=== PATIENT | female | born 1945 | race Caucasian/White ===

== ENCOUNTER 2022-12-24 17:05 | Inpatient (IN) ==
--- NOTE | 2022-12-24 17:19 | Emergency Department Note ---
Impression & Plan Fall, Dementia, Contusion of face ED Provider Note Provider: Zuhair Torres MD DATE OF SERVICE: 12/24/2022 CHIEF COMPLAINT: Fall HISTORY OF PRESENT ILLNESS: Patient is a 77-year-old female with unfortunate advanced dementia presenting here today after a fall. Resides at [facility]. Unfortunately had several falls recently and fell last night seen here in the emergency department. Patient unfortunately with severe dementia unable to provide me significant history. EMS reports that the patient at [facility] was found and had a fall onto the posterior head with a bump there. Fortunately no other significant injuries. Patient denies other pain but again is not a good historian. Records indicate she is not on significant anticoagulants. PAST MEDICAL HISTORY: As noted above MEDICATIONS: Reviewed home medication SOCIAL HISTORY: Resides at [facility] memory care unit PHYSICAL EXAM: GENERAL: alert in no acute distress but not oriented to recent events or where she is at the time. Head: Significant contusions of the face with a large forehead hematoma present without active bleeding. Some slight swelling of the posterior head but not significant tender . No bleeding noted EYES: No injection, discharge or icterus. PERRL, EOMI. NECK: Trachea midline. Supple without significant tenderness ENT: Mucous membranes pink and moist. No epistaxis noted at this time. LUNGS: Airway patent. No retractions. Breath sounds clear HEART: Regular rate and rhythm. No chest wall tenderness ABDOMEN: Soft and non-tender, without guarding or rebound. EXTREMITIES: No significant swelling of the lower extremities. Some contusions prickly to left forearm but on both upper extremities. Soft compartments in all 4 extremities. No significant bony tenderness. NEUROLOGICAL: No focal deficits moving all extremities. No slurred speech. Confabulating speech reportedly baseline with her dementia. PDMP was checked without noted issue. GCS 14. Baseline confusion. Patient's imaging reviewed. Differential includes Fracture, dislocation, contusion, intra-abdominal, p neumothorax, intrathoracic, intracranial, neurologic, compartment syndrome, rhabdomyolysis, as well as other pathologies. IMPRESSION/MEDICAL DECISION MAKING: Patient had blood work completed yesterday in addition to imaging. New fall now and will complete a CT head, cervical spine, and x-rays of the chest and pelvis. No significant pain on exam elsewise the forehead which has some swelling and tenderness and healing contusion. Appears this was present last night. CT imaging of the head and cervical spine per radiology without significant skull fracture, pneumocephalus, or intracranial bleed noted. Not on high risk blood thinners. No significant tenderness in the extremities with some healing contusions on the forearm in particular noted. Patient's son later bedside. Discussion with case management. Son has concerns given that she has had 3 falls in 3 days and they do not seem to be able to give her the appropriate level of care according to him at the facility. He has reac hed out to [facility] as well as hospice to discuss additional support options. He does not feel comfortable with her returning. Basic blood work obtained although blood work was obtained last night. Son wished to have her stay for other placement. Case management aware. Discussed with the hospitalist. DIAGNOSIS: Fall, facial contusion, dementia DISPOSITION: Hospitalist will evaluate Past Med/Surg History Medical History Dementia No pertinent family history Surgical History No pertinent past surgical history Social History Smoking Status: Never smoker Feels Safe at Home: Yes Allergies Allergies Allergy/AdvReac Type Severity Reaction Status Date / Time No Known Allergies Allergy Verified 12/24/22 18:52 Home Meds Home Medications Medication Instructions Recorded Confirmed acetaminophen 325 mg tablet 650 mg PO Q6H PRN PAIN/FEVER >101 12/24/22 12/24/22 (Tylenol) cholecalciferol (vitamin D3) 50 50 mcg PO QAM 12/24/22 12/24/22 mcg (2,000 unit) capsule (Vitamin D3) loperamide 2 mg capsule 4 mg PO DAILY PRN Loose Stool 12/24/22 12/24/22 melatonin 5 mg tablet 5 mg PO HS 12/24/22 12/24/22 ondansetron HCl 4 mg tablet 4 mg PO Q8H PRN NAUSE/VOMITING 12/24/22 12/24/22 paroxetine HCl 10 mg tablet 10 mg PO QAM 12/24/22 12/24/22 valproic acid 250 mg capsule See Rx Instructions .Route .COMPLEX 12/24/22 12/24/22 Results & Data (ED) Vital Signs Vital Signs - 24 hr 12/24/22 17:32 Temperature 36.9 C Temperature Source Oral Pulse Rate 76 Respiratory Rate 14 Blood Pressure 91/50 L Blood Pressure Mean 63 Pulse Oximetry 94 Sepsis Recent Fever Within 48 Hours No Sepsis New/Unexplained Change in Mental Status No Sepsis Action Taken by Nursing No Action Required Imaging Data Radiologist's Impression: Cervical Spine CT 12/24/22 17:11 CT SCAN OF THE CERVICAL SPINE CLINICAL HISTORY: Fall. COMPARISON STUDY: CT of the cervical spine dated 12/23/2022. TECHNIQUE: CT scan of the cervical spine is performed from the skull base to the upper thoracic spine. Images are reviewed in the axial, sagittal, and coronal planes. IV contrast was not administered for this examination. A dose lowering technique was utilized adhering to the principles of ALARA. CT DOSE: 816.47 mGy.cm FINDINGS: Skeletal structures: The skeletal structures are osteopenic. There is no evidence of fracture or subluxation involving the cervical spine. Vertebral body height is maintained. There is minimal anterolisthesis at C4-C5. Alignment is otherwise preserved. There is straightening of the cervical lordosis with reversal centered at C4-C5. Large anterior osteophytes are seen throughout. The odontoid process and lateral masses are intact. The atlantoaxial articulation is preserved noting productive degenerative change. The spinous processes appear intact. There is moderate to advanced multilevel cervical spondylosis. Uncovertebral and facet arthropathy contribute to neural foraminal narrowing at most levels. Intervertebral discs: There is marked severe disc space narrowing at C5-C6 and C6-C7. Mild to moderate narrowing is seen at the remaining cervical levels. Central canal: Posterior disc osteophyte complexes are seen at all cervical levels between C3-C4 and C7-T1. This likely contributes to multilevel acquired compromise of the central canal. Soft tissues: The prevertebral and paraspinous soft tissues are within normal limits. There is atherosclerotic calcification of the carotid bulbs. Calvarium: The visualized calvarium at the skull base appears intact. Brain parenchyma: Partially visualized brain parenchyma at the skull base is within normal limits. Sinuses and mastoids: The visualized paranasal sinuses are clear. The mastoid air cells are well pneumatized. Lung apices: Clear as visualized. IMPRESSION: 1. There is no evidence of fracture or subluxation involving the cervical spine. 2. Osteopenia and spondylotic change as above. ACT 112: Negative or not required by law. Electronically signed by: Aly Queen M.D. 12/24/2022 5:54 PM Chest X-Ray 12/24/22 17:11 SINGLE VIEW CHEST CLINICAL HISTORY: Fall. FINDINGS: An AP, portable, upright chest radiograph is compared to study dated 12/23/2022. The cardiomediastinal silhouette is unremarkable. Nonspecific interstitial thickening is likely chronic. Subpleural reticulation is seen throughout both lungs. There is mild elevation of the right hemidiaphragm with bibasilar scarring/atelectasis. Foci of parenchymal scarring are seen throughout both lungs. No airspace consolidation or large pleural effusion is identified. No pneumothorax is seen. The skeletal structures are osteopenic. There are chronic/healed right-sided rib fractures. IMPRESSION: No acute cardiopulmonary abnormality. No significant change from yesterday. ACT 112: Negative or not required by law. Electronically signed by: Aly Queen M.D. 12/24/2022 6:[address] 12/24/22 17:11 CT SCAN OF THE BRAIN WITHOUT IV CONTRAST CLINICAL HISTORY: Fall. COMPARISON STUDY: CT of the brain dated 12/23/2022. TECHNIQUE: Unenhanced axial CT scan of the brain is performed from the vertex to the skull base. A dose lowering technique was utilized adhering to the principles of ALARA. FINDINGS: Brain parenchyma: There is age-related involutional change noting moderate subcortical and periventricular microangiopathic disease. There is no hemorrhage, mass effect, or evidence of acute territorial ischemia by CT criteria. Bartlett-white matter differentiation is preserved. No extra-axial fluid collection is seen. Ventricles, sulci, cisterns: Prominent secondary to involutional change. Intracranial vasculature: There is atherosclerotic calcification of the cavernous carotid and vertebral arteries appear. Calvarium: The skeletal structures are osteopenic. No depressed calvarial fracture is identified. Sinuses and mastoids: The visualized paranasal sinuses are clear. The mastoid air cells are well pneumatized. Orbits: The bony orbits are grossly intact. Soft tissues: A frontal scalp hematoma is similar to yesterday. There is also right premalar soft tissue contusion. IMPRESSION: There is no hemorrhage, mass effect, or evidence of acute territorial ischemia by CT criteria. ACT 112: Negative or not required by law. Electronically signed by: Aly Queen M.D. 12/24/2022 5:49 PM Pelvis X-Ray 12/24/22 17:11 SINGLE VIEW PELVIS CLINICAL HISTORY: Fall. FINDINGS: 2 AP, portable, supine views of the pelvis are compared to pelvic radiograph and CT dated 12/23/2022. The skeletal structures are osteopenic. There is no radiographic evidence of acute fracture involving the hips or bony pelvis. Mild to moderate arthritic change and joint space narrowing is seen in the hips. Degenerative sclerosis is noted in the sacroiliac joints. Lumbosacral spondylosis is partially visualized. The overlying soft tissues are within normal limits. Fecal retention is noted in the rectosigmoid. IMPRESSION: No acute bony abnormality is identified. Electronically signed by: Aly Queen M.D. 12/24/2022 6:10 PM Discharge Plan Visit Data Chief Complaint: Fall Stated Complaint: FALL, CONTUSION TO BACK OF HEAD ED Provider: Zuhair Torres Discharge Problem: Fall, Dementia, Contusion of face Patient Disposition: Being Evaluated by Hospitalist Forms Stand Alone Forms: [facility] Prescriptions Prescriptions: No Action acetaminophen [Tylenol] 325 mg Tablet 650 mg PO Q6H PRN (Reason: PAIN/FEVER >101) paroxetine HCl 10 mg tablet 10 mg PO QAM loperamide 2 mg Capsule 4 mg PO DAILY PRN (Reason: Loose Stool) ondansetron HCl [Zofran] 4 mg Tablet 4 mg PO Q8H PRN (Reason: NAUSE/VOMITING) valproic acid 250 mg capsule See Rx Instructions .ROUTE .COMPLEX Rx Instructions: TAKES 500 MG QAM, THE 750 MG DAILY @ 1600 melatonin 5 mg Tablet 5 mg PO HS cholecalciferol (vitamin D3) [Vitamin D3] 50 mcg (2,000 unit) Capsule 50 mcg PO QAM Referrals Referrals: [facility] [Primary Care Provider] - Fall Qualifiers: Encounter type: initial encounter Qualified Code(s): W19.XXXA - Unspecified fall, initial encounter Dementia Qualifiers: Dementia type: unspecified type Contusion of face Qualifiers: Encounter type: initial encounter Qualified Code(s): S00.83XA - Contusion of other part of head, initial encounter
--- NOTE | 2022-12-24 17:51 | CT Scan Report ---
CT SCAN OF THE BRAIN WITHOUT IV CONTRAST CLINICAL HISTORY: Fall. COMPARISON STUDY: CT of the brain dated 12/23/2022. TECHNIQUE: Unenhanced axial CT scan of the brain is performed from the vertex to the skull base. A do se lowering technique was utilized adhering to the principles of ALARA. FINDINGS: Brain parenchyma: There is age-related involutional change noting moderate subcortical and periventri cular microangiopathic disease. There is no hemorrhage, mass effect, or evidence of acute territorial ischemia by CT criteria. Bartlett-white matter differentiation is preserved. No extra-axial fluid collec tion is seen. Ventricles, sulci, cisterns: Prominent secondary to involutional change. Intracranial vasculature: There is atherosclerotic calcification of the cavernous carotid and vertebr al arteries appear. Calvarium: The skeletal structures are osteopenic. No depressed calvarial fracture is identified. Sinuses and mastoids: The visualized paranasal sinuses are clear. The mastoid air cells are well pneu matized. Orbits: The bony orbits are grossly intact. Soft tissues: A frontal scalp hematoma is similar to yesterday. There is also right premalar soft tis amy contusion. IMPRESSION: There is no hemorrhage, mass effect, or evidence of acute territorial ischemia by CT odalis isidro. ACT 112: Negative or not required by law. Electronically signed by: Aly Queen M.D. 12/24/2022 5:49 PM
--- NOTE | 2022-12-24 17:57 | CT Scan Report ---
CT SCAN OF THE CERVICAL SPINE CLINICAL HISTORY: Fall. COMPARISON STUDY: CT of the cervical spine dated 12/23/2022. TECHNIQUE: CT scan of the cervical spine is performed from the skull base to the upper thoracic spine . Images are reviewed in the axial, sagittal, and coronal planes. IV contrast was not administered fo r this examination. A dose lowering technique was utilized adhering to the principles of ALARA. CT DOSE: 816.47 mGy.cm FINDINGS: Skeletal structures: The skeletal structures are osteopenic. There is no evidence of fracture or subl uxation involving the cervical spine. Vertebral body height is maintained. There is minimal anterolis thesis at C4-C5. Alignment is otherwise preserved. There is straightening of the cervical lordosis wi th reversal centered at C4-C5. Large anterior osteophytes are seen throughout. The odontoid process a nd lateral masses are intact. The atlantoaxial articulation is preserved noting productive degenerati ve change. The spinous processes appear intact. There is moderate to advanced multilevel cervical spo ndylosis. Uncovertebral and facet arthropathy contribute to neural foraminal narrowing at most levels . Intervertebral discs: There is marked severe disc space narrowing at C5-C6 and C6-C7. Mild to moderat e narrowing is seen at the remaining cervical levels. Central canal: Posterior disc osteophyte complexes are seen at all cervical levels between C3-C4 and C7-T1. This likely contributes to multilevel acquired compromise of the central canal. Soft tissues: The prevertebral and paraspinous soft tissues are within normal limits. There is athero sclerotic calcification of the carotid bulbs. Calvarium: The visualized calvarium at the skull base appears intact. Brain parenchyma: Partially visualized brain parenchyma at the skull base is within normal limits. Sinuses and mastoids: The visualized paranasal sinuses are clear. The mastoid air cells are well pneu matized. Lung apices: Clear as visualized. IMPRESSION: 1. There is no evidence of fracture or subluxation involving the cervical spine. 2. Osteopenia and spondylotic change as above. ACT 112: Negative or not required by law. Electronically signed by: Aly Queen M.D. 12/24/2022 5:54 PM
--- NOTE | 2022-12-24 18:13 | XRay Report ---
SINGLE VIEW PELVIS CLINICAL HISTORY: Fall. FINDINGS: 2 AP, portable, supine views of the pelvis are compared to pelvic radiograph and CT dated . The skeletal structures are osteopenic. There is no radiographic evidence of acute fracture involving the hips or bony pelvis. Mild to moderate arthritic change and joint space narrowing is se en in the hips. Degenerative sclerosis is noted in the sacroiliac joints. Lumbosacral spondylosis is partially visualized. The overlying soft tissues are within normal limits. Fecal retention is noted i n the rectosigmoid. IMPRESSION: No acute bony abnormality is identified. Electronically signed by: Aly Queen M.D. 12/24/2022 6:10 PM
--- NOTE | 2022-12-24 18:13 | XRay Report ---
SINGLE VIEW CHEST CLINICAL HISTORY: Fall. FINDINGS: An AP, portable, upright chest radiograph is compared to study dated 12/23/2022. The cardiom ediastinal silhouette is unremarkable. Nonspecific interstitial thickening is likely chronic. Subpleu ral reticulation is seen throughout both lungs. There is mild elevation of the right hemidiaphragm wi th bibasilar scarring/atelectasis. Foci of parenchymal scarring are seen throughout both lungs. No ai rspace consolidation or large pleural effusion is identified. No pneumothorax is seen. The skeletal s tructures are osteopenic. There are chronic/healed right-sided rib fractures. IMPRESSION: No acute cardiopulmonary abnormality. No significant change from yesterday. ACT 112: Negative or not required by law. Electronically signed by: Aly Queen M.D. 12/24/2022 6:12 PM
[2022-12-24 19:42] LABS: Basophils # (auto) 0.02 K/uL (0-0.2); Basophils % (auto) 0.3 %; Eosinophils # (auto) 0.02 K/uL (0-0.50); Eosinophils % (auto) 0.3 %; Hematocrit (blood only) 37.9 % (37.0-47.0); Hemoglobin 12.5 g/dl (12.0-16.0); Immature Granulocytes # (auto) 0.02 K/uL (0.01-0.20); Immature Granulocytes % (auto) 0.3 %; Lymphocytes # (auto) 1.08 K/uL (1.2-3.4); Lymphocytes % (auto) 15.5 %; Mean Corpuscular Hemoglobin 30.2 pg (25.0-34.0); Mean Corpuscular Volume 91.5 fL (80.0-100.0); Mean Platelet Volume 9.3 fL (9.4-12.4); Monocytes # (auto) 0.95 K/uL (0.11-0.59); Monocytes % (auto) 13.6 %; Neutrophils # (auto) 4.89 K/uL (1.40-6.50); Platelet Count 161 K/uL (130-400); RDW Coefficient of Variation 15.3 % (11.5-14.5); RDW Standard Deviation 51.1 fL (36.4-46.3); Red Blood Count 4.14 M/uL (4.20-5.40); White Blood Count 6.98 K/ul (4.8-10.8)
[2022-12-24 20:00] LABS: Alanine Aminotransferase 23 U/L (7-52); Albumin Globulin Ratio 1.1 (0.9-2); Albumin Level 3.4 gm/dl (3.4-5.0); Alkaline Phosphatase 68 U/L (34-104); Anion Gap 3 (3-11); BUN Creatinine Ratio 29.5 (10-20); Bilirubin,Total 0.4 mg/dl (0.2-1.0); Blood Urea Nitrogen 13 mg/dl (6-23); Carbon Dioxide 30 mmol/L (21-32); Chloride 111 mmol/L (98-107); Creatine Kinase 144 U/L (26-192); Creatinine Clr Calc Pharmacy 60.2 ml/min; Est GFR (African American) 112.1 ml/min; Est GFR (Non-African American) 96.7 ml/min; Glucose 91 mg/dl (70-99(Fasting)); Sodium 144 mmol/L (136-145); Total Protein 6.4 gm/dl (6.0-8.3)
[2022-12-24] MEDS ORDERED: POLYETHYLENE (MIRALAX) 17 GM PACK PO PRN (21:28)
[2022-12-24] MEDS ORDERED: ACETAMINOPHEN 325 MG TAB PO PRN (21:28)
[2022-12-24] MEDS: MELATONIN 3 MG TAB PO SCH (23:01)
[2022-12-25] MEDS: VALPROIC ACID SOLN 500 MG/10 ML UDC PO SCH ×2 (06:19→18:29)
[2022-12-25 06:56] LABS: Appearance Urine Cloudy (Clear); Bacteria Urine Automated 4+ (Negative); Bilirubin Urine Negative (Negative); Blood Urine Negative (Negative); Cast Urine Automated 0 /lpf (0-5); Color Urine Yellow; Epithelial Cell Urine Auto 0-5 /lpf (0-5); Glucose Urine UA Negative (Negative); Ketones Urine Trace (Negative); Leukocyte Esterase Urine 1+ (Negative); Nitrite Urine Positive (Negative); Protein Urine Negative (Negative); RBC Urine Automated 0-4 /hpf (0-4); Specific Gravity Urine 1.022 (1.000-1.030); Urobilinogen Urine Negative (Negative); pH Urine 6.5 (4.5-7.5)
--- NOTE | 2022-12-25 07:30 | History and Physical Report ---
DATE OF ADMISSION: 12/24/2022. CHIEF COMPLAINT: Frequent falls. HISTORY OF PRESENT ILLNESS: This is a 77-year-old female with past medical history significant for advanced dementia, hyperlipidemia, history of trigeminal neuralgia, history of tobacco use, who is currently living at [facility], presents with falls. She fell 3 times in last 3 days. She was in the ER last night and she was discharged back. Son is in the room. As per son, patient was nauseous today morning and had only broth in the afternoon, but she fell again and she likes higher level of care because she is falling frequently and working on to get in her to [facility] and doesn't want to take her back to [facility].She has a bump on her forehead, which was from yesterday's fall per son and she has black and blue bruises around the eyes. The patient is alert and awake, oriented to name. Son says she can recognize him. She is talking tangentially, obeys some of the commands, but not all of them.Patient denies any pain, but she is poor historian. As per the son, he does not know whether she has nausea or vomiting or diarrhea or constipation, but there was no fever or cough. Imaging studies, there are no acute findings. As per son, she was on donepezil before, but for some reason stopped recently and she was first placed on Paxil from last 1 month and then she stopped taking them couple of days ago, as she ran out of pills . Son just refilled the prescription, but not keen to give it as one of the side effect is dizziness and possibly causing her falls. The patient is hemodynamically stable. ALLERGIES: No known drug allergies. PAST MEDICAL HISTORY: As mentioned above. PAST SURGICAL HISTORY: No surgical history on file. MEDICATIONS: The patient is on Tylenol 650 mg p.o. every 6 hours p.r.n., vitamin D 50 mcg p.o. daily, loperamide 4 mg p.o. daily p.r.n., melatonin 5 mg p.o. at bedtime, Zofran 4 mg p.o. every 8 hours p.r.n., Paxil 10 mg p.o. a.m., valproic acid 500 mg in a.m. and 750 mg at 04:00 p.m. FAMILY HISTORY: No family history on file. SOCIAL HISTORY: Currently living at [facility]. Quit smoking in 2006 as per records, smoked quarter pack a day for 50 years. No drug use. REVIEW OF SYSTEMS: Unobtainable as the patient has severe dementia. PHYSICAL EXAMINATION: GENERAL: The patient is alert and awake, oriented to name only, not in acute distress. VITAL SIGNS: Temperature 36.9, pulse 75, respiratory rate 16, blood pressure 91/50, oxygen 94%. HEENT: Pupils equal, round and reactive to light. Bruise and bumps seen on the forehead and also bruises seen around the eyes. Oral mucosa dry. NECK: No neck masses seen. CARDIOVASCULAR: S1 and S2 heard. Regular rate and rhythm. No murmur, no gallop. RESPIRATORY SYSTEM: Normal AP diameter. No accessory muscle use. No wheezing, no crackles. ABDOMEN: Soft, bowel sounds present, nontender, no distention. CENTRAL NERVOUS SYSTEM: Alert and awake, oriented to name only. Talking tangentially. No facial droop. Speech is okay. Does not obey all of the commands. Can move extremities. EXTREMITIES: No edema, no erythema. LABORATORY DATA: WBC 6.9, hemoglobin 12.5, hematocrit 37.9, platelets 161. Sodium 144, chloride 111, CO2 of 30, BUN 13, creatinine 0.4, serum glucose 91, calcium 9, total bilirubin 0.4, ALT 23, alkaline phosphatase 68, total creatine kinase 144. Valproic acid level 34. SARS-COVID rapid test negative. IMAGING DATA: Pelvic x-ray, no acute findings. CT of the head, A frontal scalp hematoma is similar to yesterday. There is also right premalar soft tissue contusion. IMPRESSION: There is no hemorrhage, mass effect, or evidence of acute territorial ischemia by CT criteria.. Chest x-ray, no acute findings. Cervical spine CT, no acute findings. EKG: EKG from yesterday, normal sinus rhythm, rate of 75, no acute ST changes seen. ASSESSMENT AND PLAN: This is a 77-year-old female with advanced dementia preswents with frequent falls 1. Frequent falls. She has advanced dementia. Currently at [facility]. Son wanted to go to different care home as currently falling frequently. Will do PT/OT. Social service to help with discharge planning. 2. Advanced dementia. Currently not donepezil, . Recently started on paxil but the son was reluctant to give it because it can cause dizziness and possible cause of her falls. Continue valproic acid.Will monitor for delirium 3. Deep venous thrombosis prophylaxis: Sequential compression devices for now. DISPOSITION: Admit to medical floor. PT/OT. Social service to help with discharge planning. CODE STATUS: DNR/DNI as per discussion with the son. Job ID: [id number] [id number]
[2022-12-25] MEDS: CHOLECALCIFEROL 1,000 UNITS 25 MCG TAB PO SCH (08:32)
--- NOTE | 2022-12-25 11:49 | Hospitalist Progress Note ---
Date of Service December 25, 2022 Assessment & Plan (1) Fall: (2) Dementia: (3) Contusion of face: (4) Closed head injury: Plan Patient has frequet fall at [facility] Son wants her to go to a different nursing facility Head and Cervical CT, CXR and Pelvic XR did not show any acute fractures Get PT/OT eval CM to aid with placement Fall precautions Per Admitting Provider, son reluctant about recently started paroxetine. Will hold off this for now Continue home Vit D, Valproic acid UA suggestive of possible UTI Start ceftriaxone Follow up urine culture DVT ppx - SCD for today in view of ecchymoses I spent a total of 35 minutes coordinating, documenting and providing care for this patient excluding time spent in performance of separately billed services Admission and Anticipated Discharge Date Admission Date: December 24, 2022 Subjective Patient seen and examined She is alert and oriented to person only, follows commands Denied any headache, dizziness, blurry vision Denied chest pain, cough, shortness of breath Patient has advanced dementia and poor historian Physical Exam Constitutional: + well hydrated; no acute distress Bumps on forehead with ecchymoses and bruises around face and eyes ENMT: external ear and nose normal, oropharynx normal Respiratory: normal respiratory effort, lungs clear to auscultation Cardiovascular: Rate/Rhythm: regular rate and regular rhythm S1 S2 Gastrointestinal (Abdomen): normal bowel sounds, soft, nontender, no hepatosplenomegaly Musculoskeletal: No pedal edema Neurologic: PERRL, EOMI, accommodation nl, no face palsy, no dysarthria Results & Data Results & Data Vital Signs (Past 12 Hours) Vital Signs Temp Pulse Resp BP Pulse Ox O2 Del Method 12/25/22 07:09 36.5 C 65 16 148/87 H 94 Room Air Laboratory Results Abnormal lab results 12/24/22 12/24/22 12/24/22 Range/Units 19:26 19:26 19:26 RBC 4.14 L (4.20-5.40) M/uL RDW Std Deviation 51.1 H (36.4-46.3) fL RDW Coeff of Macrina 15.3 H (11.5-14.5) % MPV 9.3 L (9.4-12.4) fL Lymph # (Auto) 1.08 L (1.2-3.4) K/uL [place] # (Auto) 0.95 H (0.11-0.59) K/uL Chloride 111 H (98-107) mmol/L Creatinine 0.44 L (0.6-1.2) mg/dl BUN/Creatinine Ratio 29.5 H (10-20) Urine Appearance (Clear) Urine Ketones (Negative) Urine Nitrite (Negative) Ur Leukocyte Esterase (Negative) Urine WBC (Auto) (0-5) /hpf Urine Bacteria (Auto) (Negative) Valproic Acid 34 L (50-100) mcg/ml 12/25/22 Range/Units 06:20 RBC (4.20-5.40) M/uL RDW Std Deviation (36.4-46.3) fL RDW Coeff of Macrina (11.5-14.5) % MPV (9.4-12.4) fL Lymph # (Auto) (1.2-3.4) K/uL [place] # (Auto) (0.11-0.59) K/uL Chloride (98-107) mmol/L Creatinine (0.6-1.2) mg/dl BUN/Creatinine Ratio (10-20) Urine Appearance Cloudy A (Clear) Urine Ketones Trace H (Negative) Urine Nitrite Positive A (Negative) Ur Leukocyte Esterase 1+ H (Negative) Urine WBC (Auto) 10-30 H (0-5) /hpf Urine Bacteria (Auto) 4+ H (Negative) Valproic Acid (50-100) mcg/ml (1) Fall Encounter type: initial encounter Qualified Code(s): W19.XXXA - Unspecified fall, initial encounter (2) Dementia Dementia type: unspecified type (3) Contusion of face Encounter type: initial encounter Qualified Code(s): S00.83XA - Contusion of other part of head, initial encounter (4) Closed head injury Encounter type: initial encounter Qualified Code(s): S09.90XA - Unspecified injury of head, initial encounter
[2022-12-25] MEDS: cefTRIAXone SODIUM 1,000 MG in DEXTROSE 5% AD-VAN 50 ML IV SCH (18:31)
[2022-12-25] MEDS: MELATONIN 3 MG TAB PO SCH (21:19)
[2022-12-26] MEDS: VALPROIC ACID SOLN 500 MG/10 ML UDC PO SCH ×2 (05:55→16:16)
[2022-12-26 06:36] LABS: BUN Creatinine Ratio 27.5 (10-20); Calcium 9.3 mg/dl (8.6-10.3); Est GFR (African American) 106.7 ml/min; Est GFR (Non-African American) 92.1 ml/min; Potassium 4.2 mmol/L (3.5-5.1)
[2022-12-26 06:49] LABS: Hematocrit (blood only) 36.8 % (37.0-47.0); Hemoglobin 12.2 g/dl (12.0-16.0); Mean Corpuscular Hemoglobin 30.1 pg (25.0-34.0); Mean Corpuscular Hgb Conc 33.2 g/dL (32.0-36.0); Mean Corpuscular Volume 90.9 fL (80.0-100.0); Mean Platelet Volume 9.5 fL (9.4-12.4); Platelet Count 181 K/uL (130-400); RDW Coefficient of Variation 14.7 % (11.5-14.5); RDW Standard Deviation 49.3 fL (36.4-46.3); Red Blood Count 4.05 M/uL (4.20-5.40); White Blood Count 8.77 K/ul (4.8-10.8)
[2022-12-26] MEDS: CHOLECALCIFEROL 1,000 UNITS 25 MCG TAB PO SCH (08:42)
--- NOTE | 2022-12-26 13:25 | Hospitalist Progress Note ---
Date of Service December 26, 2022 Assessment & Plan (1) Fall: (2) Dementia: (3) Contusion of face: (4) Closed head injury: Plan Fall Facial contusion Patient has frequent fall at [facility] Son wants her to go to a different nursing facility Head and Cervical CT, CXR and Pelvic XR did not show any acute fractures Get PT/OT eval; OT recs SNF CM to aid with placement Fall precautions Per Admitting Provider, son reluctant about recently started paroxetine. Will hold off this for now Continue home Vit D, Valproic acid freq falls may be associated to UTI Abnormal urinalysis UA suggestive of possible UTI culture growing gram negative bacilli Continue ceftriaxone day #2 Follow up urine culture Advanced dementia pleasant and stable DVT ppx - SCD for today in view of ecchymoses A total of 35 minutes was spent with greater than 50% of that time personally viewing all current laboratory work and diagnostic imaging studies obtained in the ED. Additionally, I was able to view the patients past medication reconciliation and history with direct visualization in the patients chart. Included in the time above, a portion of that time was spent assessing the patient while discussing and collaborating with specialists, if necessary, and making medical decision making on treatment plan. All of the above was collaborated with Dr. Kruse. Please see addendum for further details. Admission and Anticipated Discharge Date Admission Date: December 24, 2022 Supervising Physician Co-Signing Physician Notes Patient seen and examined She is alert and oriented to person only with forehead swelling and facial bruises Denied any complaints UCx growing GNR Continue ceftriaxone and follow up speciation and sensitivities CM working on placement Agree with plans as detailed by Julia Lynn PA-C Subjective Patient was seen and examined in room 384-1 Follow-up on freq falls with recent facial trauma but no factures. ROS unreliable due to underlying cognition. Discussed with nurse who states voiding via purwic and has had 2 BMS. Review of Systems Review of Systems: Unobtainable due to cognitive status Physical Exam Physical Exam: Gen: WD/WN, NAD, A&O x1 HEENT: Normocephalic, + trauma with periorbital ecchymosis/contusion, frontal hematoma, significant facial ecchymosis, conjunctivae moist, sclerae anicteric, mucous membranes moist. Lung: Clear to Auscultation bilaterally, no wheezes/rales/rhonchi Heart: Regular rate, regular rhythm, no murmurs, rubs, or gallops Abdomen: Soft, NT, ND +BS x 4 Extremities: No edema Skin: Warm, no rash, negative turgor. Results & Data Results & Data Vital Signs (Past 12 Hours) Vital Signs Temp Pulse Resp BP Pulse Ox O2 Del Method 12/26/22 07:38 36.7 C 69 20 127/76 96 Room Air Laboratory Results Short CBC 12/26/22 Range/Units 05:26 WBC 8.77 (4.8-10.8) K/ul Hgb 12.2 (12.0-16.0) g/dl Hct 36.8 L (37.0-47.0) % Plt Count 181 (130-400) K/uL BMP 12/26/22 05:26 Sodium 136 Potassium 4.2 Chloride 100 Carbon Dioxide 31 BUN 14 Creatinine 0.51 L Glucose 79 Calcium 9.3 Medications Administered Current Inpatient Medications Acetaminophen (Acetaminophen 325 Mg Tab) 650 mg PO Q4H PRN PRN Reason: pain/fever Stop: 01/23/23 21:27 Ceftriaxone Sodium 1,000 mg/ (Dextrose) 50 mls @ 100 mls/hr IV Q24H [facility]; Protocol Stop: 12/30/22 16:59 Last Infusion: 12/25/22 19:23 Dose: Infused Melatonin (Melatonin 3 Mg Tab) 4.5 mg PO HS [facility] Stop: 01/23/23 21:27 Last Admin: 12/25/22 21:19 Dose: 4.5 mg Polyethylene Glycol (Polyethylene (Miralax) 17 Gm Pack) 17 gm PO DAILY PRN PRN Reason: Constipation Stop: 01/23/23 21:27 Valproic Acid (Valproic Acid Soln 500 Mg/10 Ml Udc) 500 mg PO DAILYBB [facility] Stop: 01/24/23 06:29 Last Admin: 12/26/22 05:55 Dose: 500 mg Valproic Acid (Valproic Acid Soln 500 Mg/10 Ml Udc) 750 mg PO DAILY@1600 [facility] Stop: 01/24/23 15:59 Last Admin: 12/25/22 18:29 Dose: 750 mg Vitamin D (Cholecalciferol 1,000 Units 25 Mcg Tab) 2,000 units PO QAM [facility] Stop: 01/24/23 08:59 Last Admin: 12/26/22 08:42 Dose: 2,000 units (1) Fall Encounter type: initial encounter Qualified Code(s): W19.XXXA - Unspecified fall, initial encounter (2) Dementia Dementia type: unspecified type (3) Contusion of face Encounter type: initial encounter Qualified Code(s): S00.83XA - Contusion of other part of head, initial encounter (4) Closed head injury Encounter type: initial encounter Qualified Code(s): S09.90XA - Unspecified injury of head, initial encounter
[2022-12-26] MEDS: cefTRIAXone SODIUM 1,000 MG in DEXTROSE 5% AD-VAN 50 ML IV SCH (16:16)
[2022-12-26] MEDS: MELATONIN 3 MG TAB PO SCH (20:56)
[2022-12-27] MEDS: VALPROIC ACID SOLN 500 MG/10 ML UDC PO SCH ×3 (06:10→17:03)
[2022-12-27] MEDS: CHOLECALCIFEROL 1,000 UNITS 25 MCG TAB PO SCH (09:03)
--- NOTE | 2022-12-27 15:32 | Hospitalist Progress Note ---
Date of Service December 27, 2022 Assessment & Plan (1) Fall: (2) Dementia: (3) Contusion of face: (4) Closed head injury: Plan This is a 77-year-old female who has a significant past medical history of advanced dementia, hyperlipidemia, history of trigeminal neuralgia and history of tobacco abuse [facility] with [facility]. She fell 3 times in the last 3 days prior to admission. She had significant ecchymoses on face and forehead on admission. She underwent numerous imaging including head and face CT, neck CT, chest x-ray and pelvic x- ray. It did reveal a frontal scalp hematoma as well as old nasal fractures but otherwise no acute fracture. Further work-up revealed patient had UTI, greater than 100,000 Klebsiella pneumoniae, and will complete a 7-day course of antibiotic course at discharge. Patient remained otherwise stable while hospitalized. She has advanced dementia but otherwise remained pleasant. After discussion with patient's son initial plan was to be transferred to group home facility; however, case management was able to arrange patient to establish with [facility] and will be able to return to [facility] under [facility]. She will be discharged tomorrow morning @1015 a.m. A total of 35 minutes was spent with greater than 50% of that time personally viewing all current laboratory work and diagnostic imaging studies obtained in the ED. Additionally, I was able to view the patients past medication reconciliation and history with direct visualization in the patients chart. Included in the time above, a portion of that time was spent assessing the patient while discussing and collaborating with specialists, if necessary, and making medical decision making on treatment plan. All of the above was collaborated with Dr. Kruse. Please see addendum for further details. Admission and Anticipated Discharge Date Admission Date: December 24, 2022 Supervising Physician Co-Signing Physician Notes Patient seen and examined She is alert and oriented to person only with forehead swelling and facial bruises Denied any complaints UCx growing pansensitive Klebsiella pneumoniae Change to cefdinir to complete treatment CM working on placement. Possible dc tomorrow per CM Agree with plans as detailed by Julia Lynn PA-C Subjective Patient was seen and examined in room 384-1 Follow-up on freq falls with recent facial trauma but no factures. ROS unreliable due to underlying cognition. Review of Systems Review of Systems: Unobtainable due to cognitive status Physical Exam Physical Exam: Gen: WD/WN, NAD, A&O x1 HEENT: Normocephalic, + trauma with periorbital ecchymosis/contusion, frontal scalp hematoma, significant facial ecchymosis, conjunctivae moist, sclerae anicteric, mucous membranes moist. Lung: Clear to Auscultation bilaterally, no wheezes/rales/rhonchi Heart: Regular rate, regular rhythm, no murmurs, rubs, or gallops Abdomen: Soft, NT, ND +BS x 4 Extremities: No edema Skin: Warm, no rash, negative turgor. Results & Data Results & Data Vital Signs (Past 12 Hours) Vital Signs Temp Pulse Resp BP Pulse Ox O2 Del Method 12/27/22 11:02 36.6 C 76 14 123/77 99 Room Air 12/27/22 09:45 Room Air 12/27/22 07:34 36.6 C 63 14 130/63 97 Room Air Medications Administered Current Inpatient Medications Acetaminophen (Acetaminophen 325 Mg Tab) 650 mg PO Q4H PRN PRN Reason: pain/fever Stop: 01/23/23 21:27 Ceftriaxone Sodium 1,000 mg/ (Dextrose) 50 mls @ 100 mls/hr IV Q24H [facility]; Protocol Stop: 12/30/22 16:59 Last Infusion: 12/26/22 16:47 Dose: Infused Melatonin (Melatonin 3 Mg Tab) 4.5 mg PO HS [facility] Stop: 01/23/23 21:27 Last Admin: 12/26/22 20:56 Dose: 4.5 mg Polyethylene Glycol (Polyethylene (Miralax) 17 Gm Pack) 17 gm PO DAILY PRN PRN Reason: Constipation Stop: 01/23/23 21:27 Valproic Acid (Valproic Acid Soln 500 Mg/10 Ml Udc) 500 mg PO DAILYBB [facility] Stop: 01/24/23 06:29 Last Admin: 12/27/22 06:10 Dose: 500 mg Valproic Acid (Valproic Acid Soln 500 Mg/10 Ml Udc) 750 mg PO DAILY@1600 [facility] Stop: 01/24/23 15:59 Last Admin: 12/26/22 16:16 Dose: 750 mg Vitamin D (Cholecalciferol 1,000 Units 25 Mcg Tab) 2,000 units PO QAM [facility] Stop: 01/24/23 08:59 Last Admin: 12/27/22 09:03 Dose: 2,000 units (1) Fall Encounter type: initial encounter Qualified Code(s): W19.XXXA - Unspecified fall, initial encounter (2) Dementia Dementia type: unspecified type (3) Contusion of face Encounter type: initial encounter Qualified Code(s): S00.83XA - Contusion of other part of head, initial encounter (4) Closed head injury Encounter type: initial encounter Qualified Code(s): S09.90XA - Unspecified injury of head, initial encounter
[2022-12-27] MEDS: cefTRIAXone SODIUM 1,000 MG in DEXTROSE 5% AD-VAN 50 ML IV SCH (17:04)
[2022-12-27] MEDS: MELATONIN 3 MG TAB PO SCH (20:31)
[2022-12-28] MEDS: CHOLECALCIFEROL 1,000 UNITS 25 MCG TAB PO SCH (07:55)
[2022-12-28] MEDS ORDERED: CEFDINIR 300 MG CAP PO SCH (09:00)
--- NOTE | 2022-12-28 09:15 | Discharge Summary ---
Discharge Summary Date of Service December 28, 2022 Notes For Next Care Provider Admitted after fall. No fractures. Treating for UTI. Discharging back to [facility] with [facility] Medication Changes From Visit Cefdinir course x 5 days, continue probiotic, discontinued home paroxetine and vitamin D. Admission HPI Per Admitting Provider This is a 77-year-old female with past medical history significant for advanced dementia, hyperlipidemia, history of trigeminal neuralgia, history of tobacco use, who is currently living at [facility], presents with falls. She fell 3 times in last 3 days. She was in the ER last night and she was discharged back. Son is in the room. As per son, patient was nauseous today morning and had only broth in the afternoon, but she fell again and she likes higher level of care because she is falling frequently and working on to get in her to [facility] and doesn't want to take her back to state [place].She has a bump on her forehead, which was from yesterday's fall per son and she has black and blue bruises around the eyes. The patient is alert and awake, oriented to name. Son says she can recognize him. She is talking tangentially, obeys some of the commands, but not all of them.Patient denies any pain, but she is poor historian. As per the son, he does not know whether she has nausea or vomiting or diarrhea or constipation, but there was no fever or cough. Imaging studies, there are no acute findings. As per son, she was on donepezil before, but for some reason stopped recently and she was first placed on Paxil from last 1 month and then she stopped taking them couple of days ago, as she ran out of pills . Son just refilled the prescription, but not keen to give it as one of the side effect is dizziness and possibly causing her falls. The patient is hemodynamically stable. Admission Exam Per Admitting Provider GENERAL: The patient is alert and awake, oriented to name only, not in acute distress. VITAL SIGNS: Temperature 36.9, pulse 75, respiratory rate 16, blood pressure 91/50, oxygen 94%. HEENT: Pupils equal, round and reactive to light. Bruise and bumps seen on the forehead and also bruises seen around the eyes. Oral mucosa dry. NECK: No neck masses seen. CARDIOVASCULAR: S1 and S2 heard. Regular rate and rhythm. No murmur, no gallop. RESPIRATORY SYSTEM: Normal AP diameter. No accessory muscle use. No wheezing, no crackles. ABDOMEN: Soft, bowel sounds present, nontender, no distention. CENTRAL NERVOUS SYSTEM: Alert and awake, oriented to name only. Talking tangentially. No facial droop. Speech is okay. Does not obey all of the commands. Can move extremities. EXTREMITIES: No edema, no erythema. Principal Dx & Hospital Course #1 = Principal Diagnosis (1) Fall: (2) Dementia: (3) Contusion of face: (4) Closed head injury: Plan This is a 77-year-old female who has a significant past medical history of advanced dementia, hyperlipidemia, history of trigeminal neuralgia and history of tobacco abuse who currently resides at [facility] presented with frequent falls. She fell 3 times in the last 3 days prior to admission. She had significant ecchymoses on face and forehead on admission. She underwent numerous imaging including head and face CT, neck CT, chest x-ray and pelvic x- ray. It did reveal a frontal scalp hematoma as well as old nasal fractures but otherwise no acute fracture. Further work-up revealed patient had UTI, greater than 100,000 Klebsiella pneumoniae, and will complete a 5-day course of antibiotic course at discharge. Patient remained otherwise stable while hospitalized. She has advanced dementia but otherwise remained pleasant. After discussion with patient's son, case management was able to arrange patient to establish with [facility] and will be able to return to [facility] under [facility]. Reviewed medication list with son and discontinued chronic medications felt to no longer be needed given transition. Will plan to continue valproic acid for now as patient appears calm and comfortable but son encouraged to continue conversation with [place] providers as needed. Stable and comfortable at time of discharge. Discharge Exam Gen: WD/WN, NAD, sitting up in bed, A&Ox1, pleasantly confused HEENT: + trauma with periorbital ecchymosis/contusion, frontal scalp hematoma, significant facial ecchymosis, conjunctivae moist, sclerae anicteric, mucous membranes moist Lung: Clear to Auscultation bilaterally, no wheezes/rales/rhonchi Heart: Regular rate, regular rhythm, no murmurs, rubs, or gallops Abdomen: Soft, NT, ND +BS x 4 Extremities: no edema Skin: Warm, no rash Updated Medication List Medication Instructions Recorded Confirmed Type acetaminophen 325 mg tablet 650 mg PO Q6H PRN PAIN/FEVER >101 12/24/22 12/24/22 History (Tylenol) cholecalciferol (vitamin D3) 50 50 mcg PO QAM 12/24/22 12/24/22 History mcg (2,000 unit) capsule (Vitamin D3) loperamide 2 mg capsule 4 mg PO DAILY PRN Loose Stool 12/24/22 12/24/22 History melatonin 5 mg tablet 5 mg PO HS 12/24/22 12/24/22 History ondansetron HCl 4 mg tablet 4 mg PO Q8H PRN NAUSE/VOMITING 12/24/22 12/24/22 History paroxetine HCl 10 mg tablet 10 mg PO QAM 12/24/22 12/24/22 History valproic acid 250 mg capsule 250 mg PO USEASDIRECTD 12/24/22 12/26/22 History cefdinir 300 mg capsule 300 mg PO BID 5 days #10 caps 12/27/22 Rx lactobacillus combination no.4 3 3,000 mmu cells PO DAILY #5 caps 12/27/22 Rx billion cell capsule (Probiotic) Hospital Stay Data Consultations 12/24/22 19:01 ED Decision to Admit Stat Diagnostic Imagining Performed 12/24/22 17:11 CT cervical spine wo con Stat CT head/brain wo con Stat Pending Results Patient Have Any Pending Studies at Discharge: No Discharge Instructions Given to Patient (Per Discharging Provider) MEDICATION CHANGES: Cefdinir 300mg by mouth twice daily x 5 days for UTI. Probiotic daily x 5 days for GI Health. SUMMARY OF TEST RESULTS: You were admitted to hospital secondary to fall. You underwent CT of head, neck, Face, and hip/pelvis xray. No acute fractures were identified. You did develop a right frontal scalp hematoma and numerous facial bruises. A urine culture revealed you have a UTI. You will finish additional 5 days of antibiotics. You are being discharged back to [facility] with [facility]. PENDING TEST RESULTS: None RECOMMENDATIONS FOR FOLLOW-UP: Follow up with PCP as scheduled. Complete antibiotic in its entirety. Continue medication regimen as discussed with son at bedside. OTHER INSTRUCTIONS: Seek medical attention if you have: * temperature above 101 * chest pain or trouble breathing * abdominal pain, nausea, vomiting * diarrhea, dark stools or bloody stools * any unanswered questions or concerns Call 911 if symptoms are severe. Please take good care of yourself. It has been a pleasure taking care of you. Please take care of yourself. If you have any questions regarding your recent hospitalization please contact [facility] and request Sejal Warren @ [phone]. Total Time Total Time Spent Total Time Spent (In Minutes): 60
== END 2022-12-28 12:16 | disposition hospice, home (50) | DRG 92 ==
LOC: ED 17:05 → SUATTDRO 20:15 → 3N 20:15

== ENCOUNTER 2023-01-12 09:22 | Inpatient (IN) ==
[2023-01-12] MEDS ORDERED: levETIRAcetam 1,000 MG in 0.9 % SODIUM CHLORIDE 100 ML IV STA (09:51)
[2023-01-12] MEDS ORDERED: SODIUM CHLORIDE 0.9% 500 ML IV SCH (10:00)
--- NOTE | 2023-01-12 10:16 | Emergency Department Note ---
Impression & Plan Seizure, Dementia, Falling ED Provider Note NAME: DAVIS NAVAS AGE: 77 SEX: F : 1945 ARRIVES VIA: Ambulance INFORMANT: Patient[EMS, nursing] ED PROVIDER(S): [Aly Cabrera MD] CHIEF COMPLAINT: Seizure HISTORY OF PRESENT ILLNESS: The patient is a 77-year-old female who had a witnessed 3 to 5-minute tonic- clonic seizure at breakfast. She was lowered to the ground. She apparently has no seizure history. She is on Depakote though for behavioral issues. The patient was at in our hospital recently for trauma and falling. She has some old bruising to her face and forehead. The patient is a poor historian, she currently cannot really add much to the story. She denies any current pain. PMHx/PSHx: See Below SOCIAL HISTORY: See Below. PHYSICAL EXAM: GENERAL: Patient is in no acute distress. HEENT: Patient has an older central forehead hematoma. There is some contusion that appears older to the right face. Mucous membranes are moist. NECK: No stridor, no adenopathy, no meningismus, trachea is midline. Nontender cervical spine. LUNGS: Clear to auscultation bilaterally, no wheeze, no rhonchi, breath sounds equal. HEART: Subtle systolic murmur, regular rate and rhythm. ABDOMEN: Soft, nontender, bowel sounds positive, no peritonitis. EXTREMITIES: No cyanosis or edema, full range of motion of all the joints without pain or difficulty. NEUROLOGIC: Awake, moves all extremities, confused, poor historian. SKIN: No rash, no jaundice, no diaphoresis. DIFFERENTIAL DIAGNOSIS: Seizure, intracranial bleeding, electrolyte imbalance, anemia, infection, dysrhythmia, among others. EMERGENCY DEPARTMENT COURSE/PROCEDURES: Prior/Outside records reviewed: Previous discharge summary. EMS notes. ECG per my interpretation: Indication was seizure. The ECG shows a normal sinus rhythm with a rate of 84. There is no ST elevation, no PVCs. The QTc is 406. Continuous Cardiac Monitoring per my interpretation: An order was placed for continuous cardiac monitoring. The monitor shows a rate of 85 with normal sinus rhythm. MEDICAL DECISION MAKING: There is no leukocytosis or concerning anemia. There is a normal platelet count. No renal failure or significant electrolyte abnormality. No concerning liver enzyme elevation. Patient's TSH was somewhat low, the T4 was normal. Prolactin level was elevated consistent with recent seizure activity. ECG shows a sinus rhythm with a rate of 84. There was no obvious ischemia, no dysrhythm ia. Cardiac enzyme testing x1 was not consistent with acute cardiac injury. Depakote level was therapeutic. COVID test returned negative. Chest film showed some chronic change, no pneumonia or CHF per my review. Brain CT shows the known frontal hematoma. There was no acute bleed or mass effect. On exam, the patient was confused consistent with her dementia. She was interactive, she was not toxic or febrile. Patient received a 500 cc saline bolus. She was given 1000 mg of IV Keppra to p revent further seizure activity. I spoke with the patient and her family, I do think a hospital stay would be warranted. These recent falling episodes may actually have been a result of seizure activity. I did speak with Dr. Benitez of neurology. He agreed with the plan. Hospitalization, an EEG, and neurology consult are indicated. The on-call hospitalist has been consulted. The patient is currently resting comfortably, she is in no distress. DISPOSITION: Patient's presentation and findings warrant a hospital stay. Past Med/Surg History Medical History Dementia No pertinent family history Surgical History No pertinent past surgical history Social History Smoking Status: Unknown if ever smoked Hx Alcohol Use: No Hx Substance Use: No Preferred Language: Spanish Communication Ability: Effective Tire Adjuster Required: No Beliefs That Will Affect Care: None Current Living Situation: Custodial Feels Safe at Home: Yes Assistive Devices: None Allergies Allergies Allergy/AdvReac Type Severity Reaction Status Date / Time No Known Allergies Allergy Verified 01/12/23 13:10 Home Meds Home Medications Medication Instructions Recorded Confirmed acetaminophen 325 mg tablet 650 mg PO Q6H PRN PAIN/FEVER >101 12/24/22 01/12/23 (Tylenol) loperamide 2 mg capsule 4 mg PO DAILY PRN Loose Stool 12/24/22 01/12/23 melatonin 5 mg tablet 5 mg PO HS 12/24/22 01/12/23 ondansetron HCl 4 mg tablet 4 mg PO Q8H PRN NAUSE/VOMITING 12/24/22 01/12/23 atropine 1 % eye drops See Rx Instructions .Route .COMPLEX 01/12/23 01/12/23 bisacodyl 10 mg rectal suppository 10 mg LA DAILY PRN Constipation 01/12/23 01/12/23 cholecalciferol (vitamin D3) 50 50 mcg PO DAILY 01/12/23 01/12/23 mcg (2,000 unit) tablet (Vitamin D3) lorazepam 2 mg/mL oral concentrate 1 mg PO Q4H PRN Anxiety 01/12/23 01/12/23 morphine concentrate 100 mg/5 mL 10 mg PO Q2H PRN Shortness Of 01/12/23 01/12/23 (20 mg/mL) oral solution Breath promethazine 50 mg/mL injection See Rx Instructions .Route .COMPLEX 01/12/23 01/12/23 syringe valproic acid 250 mg capsule See Rx Instructions .Route .COMPLEX 01/12/23 01/12/23 Results & Data (ED) Vital Signs Vital Signs - 24 hr 01/12/23 09:31 01/12/23 09:35 01/12/23 09:58 Temperature 36.7 C Temperature Source Oral Pulse Rate 88 85 Pulse Rate from SpO2 Sensor Respiratory Rate 18 Blood Pressure 116/91 Blood Pressure Mean 99 Pulse Oximetry 95 95 Oxygen Delivery Method Room Air Room Air Sepsis Recent Fever Within 48 Hours No Sepsis New/Unexplained Change in Mental Status No Sepsis Action Taken by Nursing No Action Required 01/12/23 09:30 01/12/23 10:00 01/12/23 10:30 Temperature Temperature Source Pulse Rate 88 81 86 Pulse Rate from SpO2 Sensor 82 89 Respiratory Rate 25 H 17 17 Blood Pressure Blood Pressure Mean Pulse Oximetry 99 100 Oxygen Delivery Method Sepsis Recent Fever Within 48 Hours Sepsis New/Unexplained Change in Mental Status Sepsis Action Taken by Nursing 01/12/23 11:00 01/12/23 11:30 01/12/23 12:00 Temperature Temperature Source Pulse Rate 81 76 62 Pulse Rate from SpO2 Sensor 97 H 77 62 Respiratory Rate 19 19 13 Blood Pressure Blood Pressure Mean Pulse Oximetry 91 100 Oxygen Delivery Method Room Air Sepsis Recent Fever Within 48 Hours Sepsis New/Unexplained Change in Mental Status Sepsis Action Taken by Nursing 01/12/23 12:30 01/12/23 13:00 01/12/23 13:40 Temperature Temperature Source Pulse Rate 75 66 71 Pulse Rate from SpO2 Sensor 75 79 Respiratory Rate 14 17 Blood Pressure Blood Pressure Mean Pulse Oximetry 96 Oxygen Delivery Method Sepsis Recent Fever Within 48 Hours Sepsis New/Unexplained Change in Mental Status Sepsis Action Taken by Custodial Medications Current Medication List: was personally reviewed by me Laboratory Data Attestation: I reviewed the patient's lab results. 01/12/23 09:30 01/12/23 09:30 Lab Results 01/12/23 01/12/23 01/12/23 Range/Units 09:30 09:30 09:30 WBC 6.19 (4.8-10.8) K/ul RBC 4.20 (4.20-5.40) M/uL Hgb 12.9 (12.0-16.0) g/dl Hct 39.1 (37.0-47.0) % MCV 93.1 (80.0-100.0) fL MCH 30.7 (25.0-34.0) pg MCHC 33.0 (32.0-36.0) g/dL RDW Std Deviation 55.8 H (36.4-46.3) fL RDW Coeff of [place] 16.3 H (11.5-14.5) % Plt Count 314 (130-400) K/uL MPV 9.7 (9.4-12.4) fL Immature Gran % (Auto) 0.8 % Neut % (Auto) 66.2 % Lymph % (Auto) 22.3 % [place] % (Auto) 9.4 % Eos % (Auto) 0.8 % Baso % (Auto) 0.5 % Neut # (Auto) 4.10 (1.40-6.50) K/uL Lymph # (Auto) 1.38 (1.2-3.4) K/uL [place] # (Auto) 0.58 (0.11-0.59) K/uL Eos # (Auto) 0.05 (0-0.50) K/uL Baso # (Auto) 0.03 (0-0.2) K/uL Immature Gran # (Auto) 0.05 (0.01-0.20) K/uL Sodium Cancelled Potassium Cancelled Chloride Cancelled Carbon Dioxide Cancelled Anion Gap Cancelled BUN Cancelled Creatinine Cancelled Est Cr Clr Drug Dosing Cancelled Est GFR ( Amer) Cancelled Est GFR (Non-Af Amer) Cancelled BUN/Creatinine Ratio Cancelled Glucose Cancelled Calcium Cancelled Magnesium Cancelled Total Bilirubin Cancelled AST Cancelled ALT Cancelled Alkaline Phosphatase Cancelled Total Creatine Kinase 102 (26-192) U/L Troponin I High Sens 4.0 (0-14) pg/ml Total Protein Cancelled Albumin Cancelled Globulin Cancelled Albumin/Globulin Ratio Cancelled TSH Cancelled Free T4 (0.61-1.60) ng/dl Prolactin Valproic Acid (50-100) mcg/ml SARS-CoV-2, RNA, NAAT (NEGATIVE) 01/12/23 01/12/23 01/12/23 Range/Units 09:30 09:30 09:30 WBC (4.8-10.8) K/ul RBC (4.20-5.40) M/uL Hgb (12.0-16.0) g/dl Hct (37.0-47.0) % MCV (80.0-100.0) fL MCH (25.0-34.0) pg MCHC (32.0-36.0) g/dL RDW Std Deviation (36.4-46.3) fL RDW Coeff of [place] (11.5-14.5) % Plt Count (130-400) K/uL MPV (9.4-12.4) fL Immature Gran % (Auto) % Neut % (Auto) % Lymph % (Auto) % [place] % (Auto) % Eos % (Auto) % Baso % (Auto) % Neut # (Auto) (1.40-6.50) K/uL Lymph # (Auto) (1.2-3.4) K/uL [place] # (Auto) (0.11-0.59) K/uL Eos # (Auto) (0-0.50) K/uL Baso # (Auto) (0-0.2) K/uL Immature Gran # (Auto) (0.01-0.20) K/uL Sodium 142 Potassium 4.4 Chloride 105 Carbon Dioxide 28 Anion Gap 9 BUN 20 Creatinine 0.41 L Est Cr Clr Drug Dosing 79.1 Est GFR ( Amer) 114.7 Est GFR (Non-Af Amer) 99.0 BUN/Creatinine Ratio 48.8 H Glucose 64 L Calcium 9.2 Magnesium 1.9 Total Bilirubin 0.3 AST 25 ALT 23 Alkaline Phosphatase 98 Total Creatine Kinase (26-192) U/L Troponin I High Sens (0-14) pg/ml Total Protein 6.3 Albumin 3.6 Globulin 2.7 Albumin/Globulin Ratio 1.3 TSH Free T4 (0.61-1.60) ng/dl Prolactin Cancelled Valproic Acid 69 (50-100) mcg/ml SARS-CoV-2, RNA, NAAT (NEGATIVE) 01/12/23 01/12/23 01/12/23 Range/Units 09:30 09:30 10:40 WBC (4.8-10.8) K/ul RBC (4.20-5.40) M/uL Hgb (12.0-16.0) g/dl Hct (37.0-47.0) % MCV (80.0-100.0) fL MCH (25.0-34.0) pg MCHC (32.0-36.0) g/dL RDW Std Deviation (36.4-46.3) fL RDW Coeff of [place] (11.5-14.5) % Plt Count (130-400) K/uL MPV (9.4-12.4) fL Immature Gran % (Auto) % Neut % (Auto) % Lymph % (Auto) % [place] % (Auto) % Eos % (Auto) % Baso % (Auto) % Neut # (Auto) (1.40-6.50) K/uL Lymph # (Auto) (1.2-3.4) K/uL [place] # (Auto) (0.11-0.59) K/uL Eos # (Auto) (0-0.50) K/uL Baso # (Auto) (0-0.2) K/uL Immature Gran # (Auto) (0.01-0.20) K/uL Sodium Potassium Chloride Carbon Dioxide Anion Gap BUN Creatinine Est Cr Clr Drug Dosing Est GFR ( Amer) Est GFR (Non-Af Amer) BUN/Creatinine Ratio Glucose Calcium Magnesium Total Bilirubin AST ALT Alkaline Phosphatase Total Creatine Kinase (26-192) U/L Troponin I High Sens (0-14) pg/ml Total Protein Albumin Globulin Albumin/Globulin Ratio TSH 5.996 H Free T4 0.76 (0.61-1.60) ng/dl Prolactin 45.20 Valproic Acid (50-100) mcg/ml SARS-CoV-2, RNA, NAAT NEGATIVE (NEGATIVE) Administered Medications Discontinued Medications Sodium Chloride (Nss) 500 mls @ 999 mls/hr IV .Q31M SHARATH Stop: 01/12/23 10:30 Last Admin: 01/12/23 10:44 Dose: 999 mls/hr Documented By: OL Levetiracetam 1,000 mg/ Sodium (Chloride) 110 mls @ 440 mls/hr IV NOW STA Stop: 01/12/23 10:05 Last Infusion: 01/12/23 10:26 Dose: 0 mls/hr Documented By: Admin: 01/12/23 10:11 Dose: 440 mls/hr Documented By: OL Imaging Data Radiologist's Impression: Chest X-Ray 01/12/23 09:51 SINGLE VIEW CHEST CLINICAL HISTORY: Generalized weakness. FINDINGS: An AP, portable, upright chest radiograph is compared to study dated 12/24/2022. The cardiomediastinal silhouette is unremarkable nothing atherosclerotic calcification of the thoracic aorta. Chronic interstitial thickening similar to previous. Foci of parenchymal scarring are present throughout both lungs. No airspace consolidation or large pleural effusion is identified. No pneumothorax is seen. The skeletal structures are osteopenic. The bony thorax is grossly intact. IMPRESSION: No acute cardiopulmonary abnormality. ACT 112: Negative or not required by law. Electronically signed by: Aly Queen M.D. 01/12/2023 10:[address] 01/12/23 09:51 CT SCAN OF THE BRAIN WITHOUT IV CONTRAST CLINICAL HISTORY: Fall. Seizure. COMPARISON STUDY: CT of the brain dated 12/24/2022 TECHNIQUE: Unenhanced axial CT scan of the brain is performed from the vertex to the skull base. A dose lowering technique was utilized adhering to the principles of ALARA. CT DOSE: 1074.96 mGy.cm FINDINGS: Brain parenchyma: There is age-related involutional change noting moderate subcortical and periventricular microangiopathic disease. There is no hemorrhage, mass effect, or evidence of acute territorial ischemia by CT criteria. Bartlett-white matter differentiation is preserved. No extra-axial fluid collection is seen. Ventricles, sulci, cisterns: Prominent secondary to involutional change. Intracranial vasculature: There is atherosclerotic calcification of the cavernous carotid and vertebral arteries. Calvarium: The skeletal structures are osteopenic. No depressed calvarial fracture is identified. Soft tissues: There is a small frontal scalp hematoma. This has decreased in size from 12/24/2022. Sinuses and mastoids: The visualized paranasal sinuses are clear. The mastoid air cells are well pneumatized. Orbits: The bony orbits are grossly intact. IMPRESSION: 1. There is no hemorrhage, mass effect, or evidence of acute territorial ischemia by CT criteria. 2. A frontal scalp hematoma has decreased in size from 12/24/2022. ACT 112: Negative or not required by law. Electronically signed by: Aly Queen M.D. 01/12/2023 10:29 AM Discharge Plan Visit Data Chief Complaint: Seizure Stated Complaint: SEIZURE ED Provider: Aly Cabrera Discharge Problem: Seizure, Dementia, Falling Patient Disposition: Admitted As Inpatient Condition: Good Forms Stand Alone Forms: [facility] [place] [employer] Prescriptions Prescriptions: No Action acetaminophen [Tylenol] 325 mg Tablet 650 mg PO Q6H PRN (Reason: PAIN/FEVER >101) loperamide 2 mg Capsule 4 mg PO DAILY PRN (Reason: Loose Stool) ondansetron HCl 4 mg Tablet 4 mg PO Q8H PRN (Reason: NAUSE/VOMITING) melatonin 5 mg Tablet 5 mg PO HS morphine concentrate 100 mg/5 mL (20 mg/mL) solution 10 mg PO Q2H PRN (Reason: Shortness Of Breath) Rx Instructions: PRN: Pain or Shortness of Breath valproic acid 250 mg Capsule See Rx Instructions .ROUTE .COMPLEX Rx Instructions: Take 500mg by mouth in the morning and 750mg by mouth at 4:00pm bisacodyl 10 mg suppository 10 mg LA DAILY PRN (Reason: Constipation) atropine 1 % drops See Rx Instructions .ROUTE .COMPLEX Rx Instructions: Administer 2 drops under the tongue every 2 hours as needed for secretions lorazepam 2 mg/mL concentrate 1 mg PO Q4H PRN (Reason: Anxiety) cholecalciferol (vitamin D3) [Vitamin D3] 50 mcg (2,000 unit) Tablet 50 mcg PO DAILY promethazine 50 mg/mL Syringe See Rx Instructions .ROUTE .COMPLEX Rx Instructions: Apply 25mg topically to wrist or neck every 6 hours as needed for nausea or vomiting. Referrals Referrals: [facility] [Primary Care Provider] -
--- NOTE | 2023-01-12 10:21 | XRay Report ---
SINGLE VIEW CHEST CLINICAL HISTORY: Generalized weakness. FINDINGS: An AP, portable, upright chest radiograph is compared to study dated 12/24/2022. The cardiom ediastinal silhouette is unremarkable nothing atherosclerotic calcification of the thoracic aorta. Ch ronic interstitial thickening similar to previous. Foci of parenchymal scarring are present throughou t both lungs. No airspace consolidation or large pleural effusion is identified. No pneumothorax is s een. The skeletal structures are osteopenic. The bony thorax is grossly intact. IMPRESSION: No acute cardiopulmonary abnormality. ACT 112: Negative or not required by law. Electronically signed by: Aly Queen M.D. 01/12/2023 10:20 AM
--- NOTE | 2023-01-12 10:31 | CT Scan Report ---
CT SCAN OF THE BRAIN WITHOUT IV CONTRAST CLINICAL HISTORY: Fall. Seizure. COMPARISON STUDY: CT of the brain dated 12/24/2022 TECHNIQUE: Unenhanced axial CT scan of the brain is performed from the vertex to the skull base. A do se lowering technique was utilized adhering to the principles of ALARA. CT DOSE: 1074.96 mGy.cm FINDINGS: Brain parenchyma: There is age-related involutional change noting moderate subcortical and periventri cular microangiopathic disease. There is no hemorrhage, mass effect, or evidence of acute territorial ischemia by CT criteria. Bartlett-white matter differentiation is preserved. No extra-axial fluid collec tion is seen. Ventricles, sulci, cisterns: Prominent secondary to involutional change. Intracranial vasculature: There is atherosclerotic calcification of the cavernous carotid and vertebr al arteries. Calvarium: The skeletal structures are osteopenic. No depressed calvarial fracture is identified. Soft tissues: There is a small frontal scalp hematoma. This has decreased in size from 12/24/2022. Sinuses and mastoids: The visualized paranasal sinuses are clear. The mastoid air cells are well pneu matized. Orbits: The bony orbits are grossly intact. IMPRESSION: 1. There is no hemorrhage, mass effect, or evidence of acute territorial ischemia by CT criteria. 2. A frontal scalp hematoma has decreased in size from 12/24/2022. ACT 112: Negative or not required by law. Electronically signed by: Aly Queen M.D. 01/12/2023 10:29 AM
[2023-01-12 10:48] LABS: Basophils # (auto) 0.03 K/uL (0-0.2); Basophils % (auto) 0.5 %; Eosinophils # (auto) 0.05 K/uL (0-0.50); Eosinophils % (auto) 0.8 %; Hematocrit (blood only) 39.1 % (37.0-47.0); Hemoglobin 12.9 g/dl (12.0-16.0); Immature Granulocytes # (auto) 0.05 K/uL (0.01-0.20); Immature Granulocytes % (auto) 0.8 %; Lymphocytes # (auto) 1.38 K/uL (1.2-3.4); Lymphocytes % (auto) 22.3 %; Mean Corpuscular Hemoglobin 30.7 pg (25.0-34.0); Mean Corpuscular Volume 93.1 fL (80.0-100.0); Mean Platelet Volume 9.7 fL (9.4-12.4); Monocytes # (auto) 0.58 K/uL (0.11-0.59); Monocytes % (auto) 9.4 %; Neutrophils % (auto) 66.2 %; Platelet Count 314 K/uL (130-400); RDW Coefficient of Variation 16.3 % (11.5-14.5); RDW Standard Deviation 55.8 fL (36.4-46.3); White Blood Count 6.19 K/ul (4.8-10.8)
[2023-01-12 11:19] LABS: Albumin Level 3.6 gm/dl (3.4-5.0); Bilirubin,Total 0.3 mg/dl (0.2-1.0); Calcium 9.2 mg/dl (8.6-10.3); Magnesium 1.9 mg/dl (1.7-2.4); Potassium 4.4 mmol/L (3.5-5.1)
[2023-01-12 11:25] LABS: Albumin Globulin Ratio 1.3 (0.9-2); BUN Creatinine Ratio 48.8 (10-20); Creatinine Clr Calc Pharmacy 79.1 ml/min; Est GFR (African American) 114.7 ml/min; Globulin 2.7 gm/dl (2.5-4.0); Total Protein 6.3 gm/dl (6.0-8.3)
[2023-01-12 12:02] LABS: Thyroid Stimulating Hormone 5.996 uIu/ml (0.300-4.500)
[2023-01-12 12:40] LABS: T4 Free Thyroxine 0.76 ng/dl (0.61-1.60)
--- NOTE | 2023-01-12 12:47 | History & Physical Report ---
Date of Service January 12, 2023 Assessment & Plan (1) Seizure: (2) Dementia: (3) Falling: (4) Dyslipidemia: (5) Hospice care patient: Plan This is a 77-year-old female from [facility] Hospice who has PMH of advanced dementia, hyperlipidemia, history of trigeminal neuralgia and history of tobacco abuse on hospice who currently resides at [facility] presenting after witnessed seizure this morning of her breakfast. Witnessed seizure No seizure history but frequent falls in past month with unknown cause Loaded with 1g keppra in ED Prolactin level elevated at 45, valproic acid level within range at 69 Dr. Cabrera discussed with Dr. Benitez who recommended admission for further seizure workup, neuro consult placed EEG ordered, seizure precautions Dementia Continue valproic acid Hospice patient Established with [facility] within past month, has PRN ativan, morphine, zofran Seizure work up felt to be beneficial given recent falls and chance to improve quality of life Discussed admission with son and CM and how patient will have to re- establish/assess need for hospice following admission DVT Ppx: SQ heparin Code status: DNR/DNI per discussion with son/POA PCP: BAMIB Hamilton Dispo: Admit to PCU Patient seen in collaboration with Dr. Miller. Please see addendum. I spent a total of 75 minutes coordinating, documenting, and providing care for this patient excluding time spent in the performance of separately billed services. History of Present Illness Chief Complaint: witnessed seizure Primary Care Provider: [facility] This is a 77-year-old female from [facility] who has PMH of advanced dementia, hyperlipidemia, history of trigeminal neuralgia and history of tobacco abuse on hospice who currently resides at [facility] presenting after witnessed seizure this morning of her breakfast. History fully obtained from son at bedside due to patient's advanced dementia. She was recently witnessed to have tonic-clonic activity over breakfast for approximately 3 minutes and was gently helped to the floor and EMS called to bring to hospital for further evaluation. Was admitted last month due to frequent falls and underwent numerous imaging studies but no fracture was identified. Was found to have a UTI and completed an antibiotic at discharge. Son had concern that Paxil medication was causing falls and it was discontinued. Not aware of any other medication changes. Interested in patient undergoing seizure work-up with neurology consult and understands that patient will have to reestablish with hospice following discharge back to facility. Allergies Allergy/AdvReac Type Severity Reaction Status Date / Time No Known Allergies Allergy Verified 01/12/23 13:10 Home Medications Medication Instructions Recorded Confirmed Type acetaminophen 325 mg tablet 650 mg PO Q6H PRN PAIN/FEVER >101 12/24/22 01/12/23 History (Tylenol) loperamide 2 mg capsule 4 mg PO DAILY PRN Loose Stool 12/24/22 01/12/23 History melatonin 5 mg tablet 5 mg PO HS 12/24/22 01/12/23 History ondansetron HCl 4 mg tablet 4 mg PO Q8H PRN NAUSE/VOMITING 12/24/22 01/12/23 History atropine 1 % eye drops See Rx Instructions .Route .COMPLEX 01/12/23 01/12/23 History bisacodyl 10 mg rectal suppository 10 mg [place] DAILY PRN Constipation 01/12/23 History cholecalciferol (vitamin D3) 50 50 mcg PO DAILY 01/12/23 01/12/23 History mcg (2,000 unit) tablet (Vitamin D3) lorazepam 2 mg/mL oral concentrate 1 mg PO Q4H PRN Anxiety 01/12/23 01/12/23 History morphine concentrate 100 mg/5 mL 10 mg PO Q2H PRN Shortness Of 01/12/23 01/12/23 History (20 mg/mL) oral solution Breath promethazine 50 mg/mL injection See Rx Instructions .Route .COMPLEX 01/12/23 01/12/23 History syringe valproic acid 250 mg capsule 500 - 750 mg PO BID17 01/12/23 01/12/23 History Past Med/Surg History Medical History (Updated 01/12/23 @ 14:17 by Courtney Kennedy PA-C) Dementia Dyslipidemia Hospice care patient No pertinent family history Surgical History No pertinent past surgical history Family History Other Dyslipidemia Social History Smoking Status: Former smoker Hx Alcohol Use: No Hx Substance Use: No Preferred Language: Ukrainian Communication Ability: Effective Levi Maker Required: No Beliefs That Will Affect Care: None Current Living Situation: Long Term Feels Safe at Home: Yes Assistive Devices: None Review of Systems Review of Systems: Unobtainable due to cognitive status Physical Exam Physical Exam: General Appearance: WD/WN, vitals as above, NAD, sitting up in bed, pleasantly confused Head: normocephalic, healing ecchymosis and hematoma on forehead Eyes: normal inspection, PERRL, conjunctivae normal, anicteric sclerae ENT: external ear and nose normal, oropharynx normal Neck: normal visual inspection, trachea midline, no thyromegaly Respiratory: normal respiratory effort, lungs clear to auscultation, no wheeze, rales, rhonchi. No accessory muscle use Cardiovascular: regular rate, rhythm, no murmur, normal peripheral pulses, no BLE edema. Vessels: no JVD Chest: normal inspection of chest Abdomen/GI: normal bowel sounds, soft, nontender, no hepatosplenomegaly Extremities/Musculoskeletal: no cyanosis or clubbing, extremities motor strength 5/5 Neurologic: PERRL, EOMI, accommodation nl, no face palsy, no dysarthria, CN's II-XI intact bilaterally and moves all extremities Psychiatric: A+Ox3, euthymic affect Skin: no rashes, normal color, warm/dry Results & Data Results & Data Vital Signs (Past 12 Hours) Vital Signs Temp Pulse Resp BP Pulse Ox O2 Del Method 01/12/23 12:00 62 13 100 Room Air 01/12/23 11:30 76 19 91 01/12/23 11:00 81 19 01/12/23 10:30 86 17 100 01/12/23 10:00 81 17 99 01/12/23 09:30 88 25 H 01/12/23 09:58 95 Room Air 01/12/23 09:35 36.7 C 85 18 116/91 95 Room Air 01/12/23 09:31 88 Laboratory Results Short CBC 01/12/23 Range/Units 09:30 WBC 6.19 (4.8-10.8) K/ul Hgb 12.9 (12.0-16.0) g/dl Hct 39.1 (37.0-47.0) % Plt Count 314 (130-400) K/uL BMP 01/12/23 01/12/23 09:30 09:30 Sodium Cancelled 142 Potassium Cancelled 4.4 Chloride Cancelled 105 Carbon Dioxide Cancelled 28 BUN Cancelled 20 Creatinine Cancelled 0.41 L Glucose Cancelled 64 L Calcium Cancelled 9.2 Cardiac Enzymes 01/12/23 Range/Units 09:30 Total Creatine Kinase 102 (26-192) U/L Liver Function 01/12/23 01/12/23 Range/Units 09:30 09:30 Total Bilirubin Cancelled 0.3 AST Cancelled 25 ALT Cancelled 23 Alkaline Phosphatase Cancelled 98 Albumin Cancelled 3.6 Diagnostic Findings Chest X-Ray 01/12/23 09:51 SINGLE VIEW CHEST CLINICAL HISTORY: Generalized weakness. FINDINGS: An AP, portable, upright chest radiograph is compared to study dated 12/24/2022. The cardiomediastinal silhouette is unremarkable nothing atherosclerotic calcification of the thoracic aorta. Chronic interstitial thickening similar to previous. Foci of parenchymal scarring are present throughout both lungs. No airspace consolidation or large pleural effusion is identified. No pneumothorax is seen. The skeletal structures are osteopenic. The bony thorax is grossly intact. IMPRESSION: No acute cardiopulmonary abnormality. ACT 112: Negative or not required by law. Electronically signed by: Aly Queen M.D. 01/12/2023 10:[address] 01/12/23 09:51 CT SCAN OF THE BRAIN WITHOUT IV CONTRAST CLINICAL HISTORY: Fall. Seizure. COMPARISON STUDY: CT of the brain dated 12/24/2022 TECHNIQUE: Unenhanced axial CT scan of the brain is performed from the vertex to the skull base. A dose lowering technique was utilized adhering to the principles of ALARA. CT DOSE: 1074.96 mGy.cm FINDINGS: Brain parenchyma: There is age-related involutional change noting moderate subcortical and periventricular microangiopathic disease. There is no hemorrhage, mass effect, or evidence of acute territorial ischemia by CT criteria. Bartlett-white matter differentiation is preserved. No extra-axial fluid collection is seen. Ventricles, sulci, cisterns: Prominent secondary to involutional change. Intracranial vasculature: There is atherosclerotic calcification of the cavernous carotid and vertebral arteries. Calvarium: The skeletal structures are osteopenic. No depressed calvarial fracture is identified. Soft tissues: There is a small frontal scalp hematoma. This has decreased in size from 12/24/2022. Sinuses and mastoids: The visualized paranasal sinuses are clear. The mastoid air cells are well pneumatized. Orbits: The bony orbits are grossly intact. IMPRESSION: 1. There is no hemorrhage, mass effect, or evidence of acute territorial ischemia by CT criteria. 2. A frontal scalp hematoma has decreased in size from 12/24/2022. ACT 112: Negative or not required by law. Electronically signed by: Aly Queen M.D. 01/12/2023 10:29 AM Code Status & VTE Plan VTE Prophylaxis Plan VTE Prophylaxis will be ordered: Yes Supervising Physician Co-Signing Physician Notes Pt seen and examined by myself, Marline Miller MD on the day of service. Care was coordinated with Courtney Kennedy PA-C. Please refer to her note for additional information. 77yo female currently on hospice with Hx of dementia and recurrent falls, brought in after witnessed seizure-like activity. She was pleasantly demented on exam, not oriented with noted facial bruising. On depakote at home, received loading dose of Keppra in the ED. Seizure workup per Neurology. Continue Keppra based on recommendations from Neurology. Otherwise as above. (2) Dementia Dementia behavioral or psychological symptom: without behavioral, psychotic, or mood disturbance or anxiety Dementia severity: moderate Dementia type: unspecified type Qualified Code(s): F03.B0 - Unspecified dementia, moderate, without behavioral disturbance, psychotic disturbance, mood disturbance, and anxiety
[2023-01-12] MEDS ORDERED: bisacodyL 10 MG SUPP PR PRN (14:35)
[2023-01-12] MEDS ORDERED: LOPERAMIDE HCL 2 MG CAP PO PRN (14:35)
[2023-01-12] MEDS ORDERED: LORazepam 1 MG TAB PO PRN (14:41)
[2023-01-12] MEDS ORDERED: ONDANSETRON INJ 2 MG/ML 2 ML VIAL IV PRN (15:16)
[2023-01-12] MEDS ORDERED: ACETAMINOPHEN 325 MG TAB PO PRN (15:16)
[2023-01-12] MEDS ORDERED: POLYETHYLENE (MIRALAX) 17 GM PACK PO PRN (15:16)
[2023-01-12] MEDS ORDERED: LORazepam 2 MG/1 ML VIAL IV PRN (17:05)
[2023-01-12] MEDS: VALPROIC ACID SOLN 250 MG/5 ML UDC PO SCH (17:30)
[2023-01-12 19:27] LABS: Appearance Urine Clear (Clear); Bacteria Urine Automated 4+ (Negative); Bilirubin Urine Negative (Negative); Blood Urine Negative (Negative); Cast Urine Automated 0 /lpf (0-5); Color Urine Yellow; Epithelial Cell Urine Auto 0-5 /lpf (0-5); Glucose Urine UA Negative (Negative); Ketones Urine Negative (Negative); Leukocyte Esterase Urine 2+ (Negative); Nitrite Urine Positive (Negative); Protein Urine Negative (Negative); Specific Gravity Urine 1.011 (1.000-1.030); Urobilinogen Urine Negative (Negative); WBC Urine Automated >30 /hpf (0-5); pH Urine 8.5 (4.5-7.5)
[2023-01-12] MEDS: MELATONIN 3 MG TAB PO SCH (21:23)
[2023-01-12] MEDS: HEPARIN SOD 5,000 UNIT/0.5 ML VIAL SQ SCH (21:23)
[2023-01-13 06:15] LABS: Hematocrit (blood only) 38.5 % (37.0-47.0); Hemoglobin 12.7 g/dl (12.0-16.0); Mean Corpuscular Hemoglobin 30.5 pg (25.0-34.0); Mean Corpuscular Volume 92.3 fL (80.0-100.0); Mean Platelet Volume 9.2 fL (9.4-12.4); Platelet Count 316 K/uL (130-400); RDW Coefficient of Variation 16.2 % (11.5-14.5); RDW Standard Deviation 54.7 fL (36.4-46.3); Red Blood Count 4.17 M/uL (4.20-5.40); White Blood Count 7.29 K/ul (4.8-10.8)
[2023-01-13 06:42] LABS: BUN Creatinine Ratio 32.6 (10-20); Calcium 9.6 mg/dl (8.6-10.3); Creatinine Clr Calc Pharmacy 67.7 ml/min; Est GFR (African American) 112.9 ml/min; Est GFR (Non-African American) 97.4 ml/min; Potassium 4.1 mmol/L (3.5-5.1)
[2023-01-13] MEDS: cefTRIAXone SODIUM 2,000 MG in DEXTROSE 5% 50 ML IV SCH (08:41)
[2023-01-13] MEDS: SODIUM CHLORIDE 0.9% 500 ML IV SCH ×2 (08:41→16:55)
[2023-01-13] MEDS: HEPARIN SOD 5,000 UNIT/0.5 ML VIAL SQ SCH ×2 (08:42→20:39)
[2023-01-13] MEDS: VALPROIC ACID SOLN 500 MG/10 ML UDC PO SCH (08:42)
[2023-01-13] MEDS: CHOLECALCIFEROL 1,000 UNITS 25 MCG TAB PO SCH (08:42)
[2023-01-13] MEDS ORDERED: PNEUMOCOCCAL Polysaccharide Vaccine 25mcg/0.5mL vial/Syr IM ONE (09:00)
--- NOTE | 2023-01-13 13:51 | Hospitalist Progress Note ---
Date of Service January 13, 2023 Assessment & Plan (1) Seizure: (2) Dementia: (3) Falling: (4) Dyslipidemia: (5) Hospice care patient: Plan per admitting service notes with addendum: This is a 77-year-old female from [facility] on Hospice who has PMH of advanced dementia, hyperlipidemia, history of trigeminal neuralgia and history of tobacco abuse on hospice [facility] after witnessed seizure this morning of her breakfast. New Onset Seizure Unclear Etiology Concussion Injury from Recent Falls? No seizure history but frequent falls in past month with unknown cause Loaded with 1g keppra in ED Prolactin level elevated at 45, valproic acid level within range at 69 Dr. Cabrera discussed with Dr. Benitez who recommended admission for further seizure workup, neuro consult placed EEG ordered, seizure precautions 01/13 CT head: unrevealing EEG: pending continue Keppra 500mg BID patient can not tolerate MRI Brain per son awaiting Neuro eval Dementia Continue valproic acid Hospice patient Established with [facility] within past month, has PRN ativan, morphine, zofran Seizure work up felt to be beneficial given recent falls and chance to improve q uality of life Discussed admission with son and CM and how patient will have to re- establish/assess need for hospice following admission Body mass index 14.6 kg/m*m, underweight, protein-calorie malnutrition evaluated by Casket Assembler 12/25/22 DVT Ppx: hold heparin due to contusion on the forehead Code status: DNR/DNI per discussion with son/POA PCP: BAMBI Hamilton Dispo: anticipate return to [place] with [facility] plan of care discussed with patient's son Esequiel at bedside in detail and at length all questions answered he is understanding, agreeable, comfortable with the plan of care Admission and Anticipated Discharge Date Admission Date: January 12, 2023 Subjective ff up for new onset seizure, etc seen resting in bed, sitting up alert, awake, talking, pleasantly confused not oriented states she feels fine overall denies headache, dizziness, nausea, chest pain, palpitations, dizziness no abdominal pain, fever/chills, problems with urination no any other symptoms Review of Systems Review of Systems: all noted and negative except for above Physical Exam Physical Exam: General- oriented x0, not in distress, speaks in sentences with no effort or accessory muscle use Head- (+) contusion between eyebrows Eyes- anicteric (+) mild periorbital hematoma Neck- no JVD Lungs- clear breath sounds bilaterally, no rales/wheezes Heart- normal rate, regular rhythm; no murmurs Abdomen- normal bowel sounds, nondistended, soft, nontender Extremities- no pretibial edema, no calf tenderness Neuro- alert, oriented x 0; no gross focal neurologic deficits Skin- warm & dry Results & Data Results & Data Vital Signs (Past 12 Hours) Vital Signs Temp Pulse Pulse Resp BP BP Pulse Ox 01/13/23 12:30 36.6 C 69 16 127/69 96 01/13/23 08:00 72 01/13/23 08:08 36.4 C L 71 16 93/62 L 99 01/13/23 04:34 36.4 C L 71 16 100/57 L O2 Del Method 01/13/23 12:30 Room Air 01/13/23 08:00 01/13/23 08:08 Room Air 01/13/23 04:34 Room Air all noted and reviewed including below (2) Dementia Dementia behavioral or psychological symptom: without behavioral, psychotic, or mood disturbance or anxiety Dementia severity: moderate Dementia type: unspecified type Qualified Code(s): F03.B0 - Unspecified dementia, moderate, without behavioral disturbance, psychotic disturbance, mood disturbance, and anxiety
[2023-01-13] MEDS: VALPROIC ACID SOLN 250 MG/5 ML UDC PO SCH (16:55)
--- NOTE | 2023-01-13 18:07 | Electroencephalogram ---
EEG Procedure Note Date of Service January 13, 2023 Start / End Times Start Time: 10:42 End Time: 11:03 Referring Physician Brent Valdez History Seizure, dementia Home Medication List Medication Instructions Recorded Confirmed Type acetaminophen 325 mg tablet 650 mg PO Q6H PRN PAIN/FEVER >101 12/24/22 01/12/23 History (Tylenol) loperamide 2 mg capsule 4 mg PO DAILY PRN Loose Stool 12/24/22 01/12/23 History melatonin 5 mg tablet 5 mg PO HS 12/24/22 01/12/23 History ondansetron HCl 4 mg tablet 4 mg PO Q8H PRN NAUSE/VOMITING 12/24/22 01/12/23 History atropine 1 % eye drops See Rx Instructions .Route .COMPLEX 01/12/23 01/12/23 History bisacodyl 10 mg rectal suppository 10 mg [place] DAILY PRN Constipation 01/12/23 01/12/23 History cholecalciferol (vitamin D3) 50 50 mcg PO DAILY 01/12/23 01/12/23 History mcg (2,000 unit) tablet (Vitamin D3) lorazepam 2 mg/mL oral concentrate 1 mg PO Q4H PRN Anxiety 01/12/23 01/12/23 History morphine concentrate 100 mg/5 mL 10 mg PO Q2H PRN Shortness Of 01/12/23 01/12/23 History (20 mg/mL) oral solution Breath promethazine 50 mg/mL injection See Rx Instructions .Route .COMPLEX 01/12/23 01/12/23 History syringe valproic acid 250 mg capsule 500 - 750 mg PO BID17 01/12/23 01/12/23 History Inpatient Medication List Heparin Sodium (Porcine) (Heparin Sod 5,000 Unit/0.5 Ml Vial) 5,000 units SQ Q12 SHARATH Stop: 02/11/23 20:59 Last Admin: 01/13/23 08:42 Dose: 5,000 units Documented By: Admin: 01/12/23 21:23 Dose: 5,000 units Documented By: JUANCARLOS Ceftriaxone Sodium 2,000 mg/ (Dextrose) 70 mls @ 100 mls/hr IV Q24H SHARATH; Protocol Stop: 01/23/23 08:14 Last Infusion: 01/13/23 09:56 Dose: 0 mls/hr Documented By: Admin: 01/13/23 08:41 Dose: 100 mls/hr Documented By: JO Sodium Chloride (Nss) 500 mls @ 60 mls/hr IV .Q8H20M SHARATH Stop: 02/12/23 08:14 Last Admin: 01/13/23 16:55 Dose: 60 mls/hr Documented By: Infusion: 01/13/23 16:55 Dose: 60 mls/hr Documented By: Admin: 01/13/23 08:41 Dose: 60 mls/hr Documented By: JO Levetiracetam (Levetiracetam Soln 500 Mg/5 Ml Udp) 500 mg PO Q12 SHARATH Stop: 02/11/23 20:59 Last Admin: 01/13/23 08:42 Dose: 500 mg Documented By: Admin: 01/12/23 21:23 Dose: 500 mg Documented By: JUANCARLOS Melatonin (Melatonin 3 Mg Tab) 6 mg PO HSZ SHARATH Stop: 02/11/23 21:59 Last Admin: 01/12/23 21:23 Dose: 6 mg Documented By: JUANCARLOS Valproic Acid (Valproic Acid Soln 500 Mg/10 Ml Udc) 500 mg PO QAM SHARATH Stop: 02/12/23 08:59 Last Admin: 01/13/23 08:42 Dose: 500 mg Documented By: JO Valproic Acid (Valproic Acid Soln 250 Mg/5 Ml Udc) 750 mg PO DAILY@1600 SHARATH Stop: 02/11/23 15:59 Last Admin: 01/13/23 16:55 Dose: 750 mg Documented By: Admin: 01/12/23 17:30 Dose: 750 mg Documented By: AVELINA Vitamin D (Cholecalciferol 1,000 Units 25 Mcg Tab) 2,000 units PO DAILY SHARATH Stop: 02/12/23 08:59 Last Admin: 01/13/23 08:42 Dose: 2,000 units Documented By: JO Discontinued Medications Sodium Chloride (Nss) 500 mls @ 999 mls/hr IV .Q31M SHARATH Stop: 01/12/23 10:30 Last Infusion: 01/13/23 00:31 Dose: 0 mls/hr Documented By: Admin: 01/12/23 10:44 Dose: 999 mls/hr Documented By: MARY Levetiracetam 1,000 mg/ Sodium (Chloride) 110 mls @ 440 mls/hr IV NOW STA Stop: 01/12/23 10:05 Last Infusion: 01/12/23 10:26 Dose: 0 mls/hr Documented By: Admin: 01/12/23 10:11 Dose: 440 mls/hr Documented By: MARY Description This is a 21 electrode EEG with a single channel dedicated to limited EKG. The electrodes were placed in accordance with the International 10-20 system. Interpretation This is a technically limited study because of excessive muscle contraction artifacts. There is no distinctive posterior rhythm. Background activity shows diffuse slowing, composed of low amplitude, mostly frontotemporal 2 to 3 Hz delta, intermixed with 4 to 6 Hz, low amplitude theta waveforms. Photic stimulations do not induce posterior driving responses. Hyperventilation is not attempted. There is no sleep-related pattern. There are no electrographic seizures or obvious epileptogenic discharges. Impression: This is an abnormal EEG, recorded in wakefulness only, due to diffuse slowing, consistent with bihemispheric dysfunction, as seen in encephalopathies, postictal state, or neurodegenerative disorders. There is no electrographic seizure or epileptogenic discharge. Clinical Correlation Negative routine EEG will not rule out seizure disorder definitively. Clinical correlation is suggested.
--- NOTE | 2023-01-13 18:25 | Neurology Consultation ---
Date of Consultation January 13, 2023 Assessment & Plan (1) Seizure: Impression: The patient had first witnessed seizure yesterday, with loss of consciousness and tonic-clonic activity. She has advanced dementia, which will lower seizure threshold. She has been on valproic acid with therapeutic serum level. Keppra is added on admission and the patient tolerates this medication well. Head CT without acute intracranial pathology. EEG did not show electrographic seizures. Recommendations: We will keep the patient on Keppra 500 mg twice a day for seizure prevention. The patient will continue using valproic acid as before, which was started for mood stabilization. Seizure precautions. If the patient stays seizure-free, then she can be discharged to hospice tomorrow. (2) Dementia: Impression: The patient has advanced dementia with hospice care. (3) Falling: Impression: Reportedly, the patient has been falling frequently. Some of her falls could be related to unwitnessed seizures. Plan As seen above. Thank you for the consultation. History of Present Illness Reason for Consultation: Seizure Requesting Physician: Levi Zambrano MD Attending Physician: Levi Zambrano MD History of Present Illness The patient is a 77-year-old female from [facility] on hospice with history of advanced dementia, who was brought to emergency department, after the patient had a witnessed generalized seizure activity yesterday morning. According to chart, the patient lost her consciousness with tonic-clonic activity, which lasted for few minutes. There is no injury related to seizure. Apparently, the patient has been having falls recently, without witnessed seizure activity. In emergency department, prolactin level was elevated. Head CT was negative for a cute intracranial pathology. Neurological examination was nonfocal. Serum valproic acid level was therapeutic. After discussing the case with on-call neurology, the patient was loaded with 1 g of levetiracetam and started on daily Keppra 500 mg twice a day. Since admission, the patient's mental status has been improved back to her baseline. She has not had any additional seizure or seizure-like activities. EEG showed diffuse slowing but no electrographic seizure or obvious epileptogenic discharges, although, this study was technically limited. The patient has advanced dementia and physical examination is limited. I have reviewed the patient's chart including imaging studies and visualized them personally. Allergies Allergy/AdvReac Type Severity Reaction Status Date / Time No Known Allergies Allergy Verified 01/12/23 13:10 Home Medications Medication Instructions Recorded Confirmed Type acetaminophen 325 mg tablet 650 mg PO Q6H PRN PAIN/FEVER >101 12/24/22 01/12/23 History (Tylenol) loperamide 2 mg capsule 4 mg PO DAILY PRN Loose Stool 12/24/22 01/12/23 History melatonin 5 mg tablet 5 mg PO HS 12/24/22 01/12/23 History ondansetron HCl 4 mg tablet 4 mg PO Q8H PRN NAUSE/VOMITING 12/24/22 01/12/23 History atropine 1 % eye drops See Rx Instructions .Route .COMPLEX 01/12/23 01/12/23 History bisacodyl 10 mg rectal suppository 10 mg [place] DAILY PRN Constipation 01/12/23 01/12/23 History cholecalciferol (vitamin D3) 50 50 mcg PO DAILY 01/12/23 01/12/23 History mcg (2,000 unit) tablet (Vitamin D3) lorazepam 2 mg/mL oral concentrate 1 mg PO Q4H PRN Anxiety 01/12/23 01/12/23 History morphine concentrate 100 mg/5 mL 10 mg PO Q2H PRN Shortness Of 01/12/23 01/12/23 History (20 mg/mL) oral solution Breath promethazine 50 mg/mL injection See Rx Instructions .Route .COMPLEX 01/12/23 01/12/23 History syringe valproic acid 250 mg capsule 500 - 750 mg PO BID17 01/12/23 01/12/23 History Patient History Medical History Dementia Dyslipidemia Hospice care patient No pertinent family history Surgical History No pertinent past surgical history Family History Other Dyslipidemia Social History Smoking Status: Former smoker Second Hand Exposure: No; Do You Dip or Chew Tobacco: No; Hx Alcohol Use: No Hx Substance Use: No Preferred Language: Guamanian Communication Ability: Impaired Middleware Architect Required: No Beliefs That Will Affect Care: None Current Living Situation: [facility] Other Information That Helps Us Care for You: No Feels Safe at Home: Yes Safety Concerns: Feels Safe At This Time Assistive Devices: Hospital Bed and Wheelchair Review of Systems Review of Systems: Unobtainable due to cognitive status Physical Exam Physical Exam: General Examination: Constitutional: Well developed person in no acute distress. HENT: Normal exam with inspection. Frontal healing laceration and bruise is noticed. CV: Hearth rhythm is regular. Neck: Supple, no carotid bruits. Lungs: Non-labored and comfortable breathing. Abdomen: Soft, non-tender, non-distended. Skin: No rash or ecchymosis. Extremities: No edema or cyanosis NEUROLOGICAL EXAMINATION: Mental Status: Alert, confused and disoriented, pleasantly demented. She is only oriented to her name. Cranial Nerves: II-XII are intact. No nystagmus. Funduscopy: Unable to visualize. Motor: 5/5 in upper extremities without asymmetry. The patient refused motor examination and lower extremities. Tone: Normal without spasticity or rigidity in upper extremities. Sensory: Unable to assess. Coordination: Unable to assess. Speech: The patient has reasonably well verbal output with formed words. However, speech is with word salad. Her comprehension of verbal orders is essentially normal. Gait: Unable to assess. Musculoskeletal: Normal muscle bulk, no atrophy. Results & Data Vital Signs (Past 12 Hours) Vital Signs Temp Pulse Pulse Resp BP Pulse Ox O2 Del Method 01/13/23 15:42 37.1 C 68 16 104/69 98 Room Air 01/13/23 15:53 79 01/13/23 12:30 36.6 C 69 16 127/69 96 Room Air 01/13/23 08:00 72 01/13/23 08:08 36.4 C L 71 16 93/62 L 99 Room Air Laboratory Results Laboratory Results - last 24 hr 01/12/23 01/13/23 01/13/23 19:15 05:44 05:44 WBC 7.29 RBC 4.17 L Hgb 12.7 Hct 38.5 MCV 92.3 MCH 30.5 MCHC 33.0 RDW Std Deviation 54.7 H RDW Coeff of Macrina 16.2 H Plt Count 316 MPV 9.2 L Sodium 141 Potassium 4.1 Chloride 104 Carbon Dioxide 32 Anion Gap 5 BUN 14 Creatinine 0.43 L Est Cr Clr Drug Dosing 67.7 Est GFR ( Amer) 112.9 Est GFR (Non-Af Amer) 97.4 BUN/Creatinine Ratio 32.6 H Glucose 78 Calcium 9.6 Urine Color Yellow Urine Appearance Clear Urine pH 8.5 H Ur Specific Delmar 1.011 Urine Protein Negative Urine Glucose (UA) Negative Urine Ketones Negative Urine Blood Negative Urine Nitrite Positive A Urine Bilirubin Negative Urine Urobilinogen Negative Ur Leukocyte Esterase 2+ H Urine WBC (Auto) >30 H Urine RBC (Auto) 5-10 H U Hyaline Cast (Auto) 0 U Epithel Cells (Auto) 0-5 Urine Bacteria (Auto) 4+ H Nasal Screen MRSA (PCR) 01/13/23 Unknown WBC RBC Hgb Hct MCV MCH MCHC RDW Std Deviation RDW Coeff of Macrina Plt Count MPV Sodium Potassium Chloride Carbon Dioxide Anion Gap BUN Creatinine Est Cr Clr Drug Dosing Est GFR ( Amer) Est GFR (Non-Af Amer) BUN/Creatinine Ratio Glucose Calcium Urine Color Urine Appearance Urine pH Ur Specific Delmar Urine Protein Urine Glucose (UA) Urine Ketones Urine Blood Urine Nitrite Urine Bilirubin Urine Urobilinogen Ur Leukocyte Esterase Urine WBC (Auto) Urine RBC (Auto) U Hyaline Cast (Auto) U Epithel Cells (Auto) Urine Bacteria (Auto) Nasal Screen MRSA (PCR) Negative Diagnostic Findings Chest X-Ray 01/12/23 09:51 SINGLE VIEW CHEST CLINICAL HISTORY: Generalized weakness. FINDINGS: An AP, portable, upright chest radiograph is compared to study dated 12/24/2022. The cardiomediastinal silhouette is unremarkable nothing atherosclerotic calcification of the thoracic aorta. Chronic interstitial thickening similar to previous. Foci of parenchymal scarring are present throughout both lungs. No airspace consolidation or large pleural effusion is identified. No pneumothorax is seen. The skeletal structures are osteopenic. The bony thorax is grossly intact. IMPRESSION: No acute cardiopulmonary abnormality. ACT 112: Negative or not required by law. Electronically signed by: Aly Queen M.D. 01/12/2023 10:[address] 01/12/23 09:51 CT SCAN OF THE BRAIN WITHOUT IV CONTRAST CLINICAL HISTORY: Fall. Seizure. COMPARISON STUDY: CT of the brain dated 12/24/2022 TECHNIQUE: Unenhanced axial CT scan of the brain is performed from the vertex to the skull base. A dose lowering technique was utilized adhering to the principles of ALARA. CT DOSE: 1074.96 mGy.cm FINDINGS: Brain parenchyma: There is age-related involutional change noting moderate subcortical and periventricular microangiopathic disease. There is no hemorrhage, mass effect, or evidence of acute territorial ischemia by CT criteria. Bartlett-white matter differentiation is preserved. No extra-axial fluid collection is seen. Ventricles, sulci, cisterns: Prominent secondary to involutional change. Intracranial vasculature: There is atherosclerotic calcification of the cavernous carotid and vertebral arteries. Calvarium: The skeletal structures are osteopenic. No depressed calvarial fracture is identified. Soft tissues: There is a small frontal scalp hematoma. This has decreased in size from 12/24/2022. Sinuses and mastoids: The visualized paranasal sinuses are clear. The mastoid air cells are well pneumatized. Orbits: The bony orbits are grossly intact. IMPRESSION: 1. There is no hemorrhage, mass effect, or evidence of acute territorial ischemia by CT criteria. 2. A frontal scalp hematoma has decreased in size from 12/24/2022. ACT 112: Negative or not required by law. Electronically signed by: Aly Queen M.D. 01/12/2023 10:29 AM EEG: Diffuse slowing as seen in encephalopathies, postictal state and neurodegenerative disorders. There is no electrographic seizures or epileptogenic discharge during the study. (2) Dementia Dementia behavioral or psychological symptom: without behavioral, psychotic, or mood disturbance or anxiety Dementia severity: moderate Dementia type: unspecified type Qualified Code(s): F03.B0 - Unspecified dementia, moderate, without behavioral disturbance, psychotic disturbance, mood disturbance, and anxiety
[2023-01-13] MEDS: MELATONIN 3 MG TAB PO SCH (21:58)
[2023-01-14] MEDS: SODIUM CHLORIDE 0.9% 500 ML IV SCH ×2 (03:12→12:09)
[2023-01-14 07:05] LABS: Calcium 9.4 mg/dl (8.6-10.3); Potassium 3.9 mmol/L (3.5-5.1)
[2023-01-14 07:10] LABS: BUN Creatinine Ratio 44.4 (10-20); Creatinine Clr Calc Pharmacy 64.7 ml/min; Est GFR (African American) 111.2 ml/min
[2023-01-14 08:28] LABS: Hematocrit (blood only) 38.1 % (37.0-47.0); Hemoglobin 12.8 g/dl (12.0-16.0); Mean Corpuscular Hemoglobin 30.8 pg (25.0-34.0); Mean Corpuscular Hgb Conc 33.6 g/dL (32.0-36.0); Mean Corpuscular Volume 91.6 fL (80.0-100.0); Mean Platelet Volume 9.8 fL (9.4-12.4); Platelet Count 263 K/uL (130-400); RDW Coefficient of Variation 15.9 % (11.5-14.5); RDW Standard Deviation 53.5 fL (36.4-46.3); Red Blood Count 4.16 M/uL (4.20-5.40)
[2023-01-14] MEDS: cefTRIAXone SODIUM 2,000 MG in DEXTROSE 5% 50 ML IV SCH (08:53)
[2023-01-14] MEDS: CHOLECALCIFEROL 1,000 UNITS 25 MCG TAB PO SCH (08:53)
[2023-01-14] MEDS: HEPARIN SOD 5,000 UNIT/0.5 ML VIAL SQ SCH (08:54)
[2023-01-14] MEDS: VALPROIC ACID SOLN 500 MG/10 ML UDC PO SCH (08:54)
--- NOTE | 2023-01-14 17:12 | Hospitalist Progress Note ---
Date of Service January 14, 2023 delayed entry date of service noted above Assessment & Plan (1) Seizure: (2) Dementia: (3) Falling: (4) Dyslipidemia: (5) Hospice care patient: Plan per admitting service notes with addendum: This is a 77-year-old female from [facility] on Hospice who has PMH of advanced dementia, hyperlipidemia, history of trigeminal neuralgia and history of tobacco abuse on hospice who currently resides at [facility] presenting after witnessed seizure this morning of her breakfast. New Onset Seizure Unclear Etiology Concussion Injury from Recent Falls? No seizure history but frequent falls in past month with unknown cause Loaded with 1g keppra in ED Prolactin level elevated at 45, valproic acid level within range at 69 Dr. Cabrera discussed with Dr. Benitez who recommended admission for further seizure workup, neuro consult placed EEG ordered, seizure precautions 01/14 CT head: unrevealing EEG:This is an abnormal EEG, recorded in wakefulness only, due to diffuse slowing, consistent with bihemispheric dysfunction, as seen in encephalopathies, postictal state, or neurodegenerative disorders. There is no electrographic seizure or epileptogenic discharge. continue Keppra 500mg BID Neurologist consulted Dementia Continue valproic acid Hospice patient Established with [facility] within past month, has PRN ativan, morphine, zofran Body mass index 14.6 kg/m*m, underweight, protein-calorie malnutrition evaluated by Legal Consultant 12/25/22 DVT Ppx: hold heparin due to contusion on the forehead Code status: DNR/DNI per discussion with son/POA PCP: BAMBI Hamilton Dispo: return to [place] with [facility] Hospice Admission and Anticipated Discharge Date Admission Date: January 12, 2023 Subjective Follow-up for seizure, etc. Seen resting in bed, sitting up, in good spirits Pleasantly confused Denies headache dizziness, or any other new neurologic deficits States she feels fine overall No other new symptom Review of Systems Review of Systems: all noted and negative except for above Physical Exam Physical Exam: General- oriented x 0, not in distress, speaks in sentences with no effort or accessory muscle use Eyes- anicteric Neck- no JVD Lungs- clear breath sounds bilaterally, no rales/wheezes Heart- normal rate, regular rhythm; no murmurs Abdomen- normal bowel sounds, nondistended, soft, nontender Extremities- no pretibial edema, no calf tenderness Neuro- alert, oriented x 0; no gross focal neurologic deficits Skin- warm & dry Results & Data Results & Data Vital Signs (Past 12 Hours) Vital Signs Temp Pulse Pulse Resp BP BP Pulse Ox 01/14/23 13:43 36.8 C 83 20 134/81 129/79 97 01/14/23 11:00 36.8 C 83 20 134/81 97 01/14/23 10:42 68 01/14/23 08:00 36.9 C 74 18 142/74 H 129/79 97 O2 Del Method 01/14/23 13:43 01/14/23 11:00 Room Air 01/14/23 10:42 01/14/23 08:00 Room Air all noted and reviewed including below (2) Dementia Dementia behavioral or psychological symptom: without behavioral, psychotic, or mood disturbance or anxiety Dementia severity: moderate Dementia type: unspecified type Qualified Code(s): F03.B0 - Unspecified dementia, moderate, without behavioral disturbance, psychotic disturbance, mood disturbance, and anxiety
--- NOTE | 2023-01-16 16:32 | Discharge Summary ---
Discharge Summary Date of Service January 16, 2023 delayed entry date of service 01/14/23 Notes For Next Care Provider Medication Changes From Visit Keppra 500 mg p.o. twice daily Admission HPI Per Admitting Provider This is a 77-year-old female from [facility] on Hospice who has PMH of advanced dementia, hyperlipidemia, history of trigeminal neuralgia and history of tobacco abuse on hospice who currently resides at [facility] presenting after witnessed seizure this morning of her breakfast. History fully obtained from son at bedside due to patient's advanced dementia. She was recently witnessed to have tonic-clonic activity over breakfast for approximately 3 minutes and was gently helped to the floor and EMS called to bring to hospital for further evaluation. Was admitted last month due to frequent falls and underwent numerous imaging studies but no fracture was identified. Was found to have a UTI and completed an antibiotic at discharge. Son had concern that Paxil medication was causing falls and it was discontinued. Not aware of any other medication changes. Interested in patient undergoing seizure work-up with neurology consult and understands that patient will have to reestablish with hospice following discharge back to facility. Admission Exam Per Admitting Provider General Appearance:WD/WN, vitals as above, NAD, sitting up in bed, pleasantly confused Head: normocephalic, healing ecchymosis and hematoma on forehead Eyes:normal inspection, PERRL, conjunctivae normal, anicteric sclerae ENT: external ear and nose normal, oropharynx normal Neck: normal visual inspection, trachea midline, no thyromegaly Respiratory:normal respiratory effort, lungs clear to auscultation, no wheeze, rales, rhonchi. No accessory muscle use Cardiovascular: regular rate, rhythm, no murmur, normal peripheral pulses, no BLE edema. Vessels: no JVD Chest: normal inspection of chest Abdomen/GI: normal bowel sounds, soft, nontender, no hepatosplenomegaly Extremities/Musculoskeletal: no cyanosis or clubbing, extremities motor strength 5/5 Neurologic: PERRL, EOMI, accommodation nl, no face palsy, no dysarthria, CN's II-XI intact bilaterally and moves all extremities Psychiatric:A+Ox3, euthymic affect Skin: no rashes, normal color, warm/dry Principal Dx & Hospital Course #1 = Principal Diagnosis (1) Seizure: (2) Dementia: (3) Falling: (4) Dyslipidemia: (5) Hospice care patient: Plan per admitting service notes with addendum: This is a 77-year-old female from [facility] on Hospice who has PMH of advanced dementia, hyperlipidemia, history of trigeminal neuralgia and history of tobacco abuse on hospice who currently resides at [facility] presenting after witnessed seizure this morning of her breakfast. New Onset Seizure Unclear Etiology Concussion Injury from Recent Falls? No seizure history but frequent falls in past month with unknown cause Loaded with 1g keppra in ED Prolactin level elevated at 45, valproic acid level within range at 69 Dr. Cabrera discussed with Dr. Benitez who recommended admission for further seizure workup, neuro consult placed EEG ordered, seizure precautions 01/14 CT head: unrevealing EEG:This is an abnormal EEG, recorded in wakefulness only, due to diffuse slowing, consistent with bihemispheric dysfunction, as seen in encephalopathies, postictal state, or neurodegenerative disorders. There is no electrographic seizure or epileptogenic discharge. continue Keppra 500mg BID Neurologist consulted Dementia Continue valproic acid Hospice patient Established with [place] within past month, has PRN ativan, morphine, zofran Body mass index 14.6 kg/m*m, underweight, protein-calorie malnutrition evaluated by Plastic Boat Buffer 12/25/22 DVT Ppx: hold heparin due to contusion on the forehead Code status: DNR/DNI per discussion with son/POA PCP: BAMBI Hamilton Dispo: return to [place] with [facility] Discharge Exam General- oriented x 0, not in distress, speaks in sentences with no effort or accessory muscle use Eyes- anicteric Neck- no JVD Lungs- clear breath sounds bilaterally, no rales/wheezes Heart- normal rate, regular rhythm; no murmurs Abdomen- normal bowel sounds, nondistended, soft, nontender Extremities- no pretibial edema, no calf tenderness Neuro- alert, oriented x 0; no gross focal neurologic deficits Skin- warm & dry Updated Medication List Medication Instructions Recorded Confirmed Type acetaminophen 325 mg tablet 650 mg PO Q6H PRN PAIN/FEVER >101 12/24/22 01/12/23 History (Tylenol) loperamide 2 mg capsule 4 mg PO DAILY PRN Loose Stool 12/24/22 01/12/23 History melatonin 5 mg tablet 5 mg PO HS 12/24/22 01/12/23 History ondansetron HCl 4 mg tablet 4 mg PO Q8H PRN NAUSE/VOMITING 12/24/22 01/12/23 History atropine 1 % eye drops See Rx Instructions .Route .COMPLEX 01/12/23 01/12/23 History bisacodyl 10 mg rectal suppository 10 mg RI DAILY PRN Constipation 01/12/23 01/12/23 History cholecalciferol (vitamin D3) 50 50 mcg PO DAILY 01/12/23 01/12/23 History mcg (2,000 unit) tablet (Vitamin D3) lorazepam 2 mg/mL oral concentrate 1 mg PO Q4H PRN Anxiety 01/12/23 01/12/23 History morphine concentrate 100 mg/5 mL 10 mg PO Q2H PRN Shortness Of 01/12/23 01/12/23 History (20 mg/mL) oral solution Breath promethazine 50 mg/mL injection See Rx Instructions .Route .COMPLEX 01/12/23 01/12/23 History syringe valproic acid 250 mg capsule 500 - 750 mg PO [id number] 01/12/23 01/12/23 History levetiracetam 100 mg/mL oral 500 mg (5 mL) PO Q12 30 days #300 01/14/23 Rx solution (Keppra) mL Hospital Stay Data Consultations 01/12/23 11:52 ED Decision to Admit Stat 01/12/23 12:47 Consult Neurology Routine Diagnostic Imagining Performed 01/12/23 09:51 CT head/brain wo con Stat Pending Results Patient Have Any Pending Studies at Discharge: No Total Time Total Time Spent Total Time Spent (In Minutes): >30 minutes
== END 2023-01-14 15:00 | disposition home or self-care (01) | DRG 101 ==
LOC: ED 09:22 → EDINP 12:47 → SUATTDRO 12:47 → 2S 19:51
DX: F03.90 Unspecified dementia, unspecified severity, without behavioral disturbance, psychotic disturbance, mood disturbance, and anxiety; Z68.1 Body mass index [BMI] 19.9 or less, adult; R56.9 Unspecified convulsions; E78.5 Hyperlipidemia, unspecified; Z79.899 Other long term (current) drug therapy; Z66 Do not resuscitate; N39.0 Urinary tract infection, site not specified; R63.6 Underweight; E46 Unspecified protein-calorie malnutrition; R29.6 Repeated falls; Z87.891 Personal history of nicotine dependence

== ENCOUNTER 2024-09-21 13:30 | Inpatient (IN) ==
--- NOTE | 2024-09-21 13:45 | Emergency Department Note ---
Impression & Plan Choking episode, Acute hypernatremia, Aspiration into airway, Pneumonia ED Provider Note NAME: DAVIS NAVAS AGE: 79 SEX: F : 1945 ARRIVES VIA: Ambulance INFORMANT: [EMS, nursing] ED PROVIDER(S): [Aly Cabrera MD] CHIEF COMPLAINT: Choking HISTORY OF PRESENT ILLNESS: The patient is an 79-year-old female who a short time ago was choking during lunch. As per the EMS crew, the staff there performed the Heimlich maneuver for around 10 minutes before dislodging what they thought may have been a piece of potato. Since this all happened, the patient has been coughing. She was sent for evaluation. Patient has severe dementia and is basically nonverbal. She can provide no history. As per the staff at the care center, the patient was in baseline health when this occurred today. PMHx/PSHx/Social Hx: See Below PHYSICAL EXAM: GENERAL: Patient is in no acute distress. HEENT: No acute trauma, normocephalic atraumatic, mucous membranes dry, no nasal congestion. NECK: No stridor, no adenopathy, no meningismus, trachea is midline. LUNGS: Clear to auscultation bilaterally, no wheeze, no rhonchi, breath sounds equal. Chest: Nontender, no crepitus. HEART: Without murmurs gallops or rubs, regular rate and rhythm. ABDOMEN: Soft, nontender, no peritonitis. EXTREMITIES: No cyanosis, full range of motion of all the joints without pain or difficulty. NEUROLOGIC: Awake, nonverbal, unable to give any history, seen to move all extremities. SKIN: No jaundice, no diaphoresis. DIFFERENTIAL DIAGNOSIS: Esophageal foreign body, airway foreign body, aspiration, among others. EMERGENCY DEPARTMENT PROCEDURES: MEDICAL DECISION MAKING: There is no leukocytosis or concerning anemia. There is a normal platelet count. Sodium was quite high at 158, this was a critical value. No renal failure. No concerning liver enzyme elevation. Chest x-ray shows some chronic change with a potential patchy infiltrate in the left lower lung. No pneumonia. On exam, the patient was not toxic, she appeared comfortable. Patient received a 500 cc saline bolus. She was given IV ceftriaxone as antibiotic coverage. Given the choking episode, the potential aspiration, the chest x-ray findings, her hypernatremia, hospitalization is indicated. I spoke with the patient and her son. I spoke with case management. The on- call hospitalist was consulted. Prior/Outside records/notes reviewed: Today's EMS notes describing her presentation and transport to this hospital. Imaging/x-ray results per my interpretation: Chest x-ray shows some chronic change and a potential patchy infiltrate at the left base. Chronic Medical/Social conditions affecting care: Advanced age, history of severe dementia. Care/Management discussed with: Case management and the on-call hospitalist. Level of care consideration(s): After review of the information above and other included data: --I believe the patient requires escalation of care to admission DISPOSITION: Admission Past Med/Surg History Problem List (Updated 09/21/24 @ 15:47 by Aly Cabrera MD) Pneumonia (Acute) Aspiration into airway (Acute) Acute hypernatremia (Acute) Choking episode (Acute) Hospice care patient Dyslipidemia Seizure (Acute) Dementia (Acute) Falling (Acute) Fall (Acute) Dementia (Acute) Contusion of face (Acute) Medical History No pertinent family history Dementia Surgical History No pertinent past surgical history Family History Other Dyslipidemia Social History Smoking Status: Unknown if ever smoked Second Hand Exposure: No; Do You Dip or Chew Tobacco: No; Hx Alcohol Use: No Hx Substance Use: No Preferred Language: Bengali Communication Ability: Impaired [employer] Required: No Beliefs That Will Affect Care: None Current Living Situation: [facility] Feels Safe at Home: Yes Assistive Devices: Hospital Bed and Wheelchair Allergies Allergies Allergy/AdvReac Type Severity Reaction Status Date / Time No Known Allergies Allergy Verified 01/12/23 13:10 Home Meds Home Medications Medication Instructions Recorded Confirmed acetaminophen 325 mg tablet 650 mg PO BID PRN Fever Or Pain 12/24/22 09/21/24 (Tylenol) melatonin 5 mg tablet 5 mg PO HS 12/24/22 09/21/24 ondansetron HCl 4 mg tablet 4 mg PO Q8H PRN Nausea 12/24/22 09/21/24 buspirone 5 mg tablet 10 mg PO BID 09/21/24 09/21/24 divalproex 125 mg capsule,delayed 500 mg PO QAM 09/21/24 09/21/24 release sprinkle divalproex 125 mg capsule,delayed 750 mg PO QPM 09/21/24 09/21/24 release sprinkle ergocalciferol (vitamin D2) 200 4,000 unit PO DAILY 09/21/24 09/21/24 mcg/mL (8,000 unit/mL) oral drops loperamide 2 mg capsule 4 mg PO DAILY PRN LOOSE STOOLS 09/21/24 09/21/24 Results & Data (ED) Vital Signs Vital Signs - 24 hr 09/21/24 13:38 09/21/24 13:38 09/21/24 14:59 Temperature 36.6 C Temperature Source Oral Pulse Rate 94 H 90 Respiratory Rate 16 Respiratory Effort / Characteristics Non-Labored Spontaneous Respiratory Depth Normal Respiratory Pattern Regular Blood Pressure 152/90 H Blood Pressure Mean 110 Pulse Oximetry 93 93 Oxygen Delivery Method Room Air Room Air Oxygen Flow Rate 0 Sepsis Recent Fever Within 48 Hours No Sepsis New/Unexplained Change in Mental Status N/A Sepsis Action Taken by Nursing No Action Required Home Medications Current Medication List: was personally reviewed by me Laboratory Data Attestation: I reviewed the patient's lab results. 09/21/24 13:50 09/21/24 13:50 Lab Results 09/21/24 Range/Units 13:50 WBC 10.12 (4.8-10.8) K/ul RBC 4.49 (4.20-5.40) M/uL Hgb 13.4 (12.0-16.0) g/dl Hct 43.5 (37.0-47.0) % MCV 96.9 (80.0-100.0) fL MCH 29.8 (25.0-34.0) pg MCHC 30.8 L (32.0-36.0) g/dL RDW Std Deviation 53.8 H (36.4-46.3) fL RDW Coeff of Macrina 15.1 H (11.5-14.5) % Plt Count 193 (130-400) K/uL MPV 10.8 (9.4-12.4) fL Immature Gran % (Auto) 1.3 % Neut % (Auto) 76.3 % Lymph % (Auto) 13.1 % [place] % (Auto) 8.8 % Eos % (Auto) 0.2 % Baso % (Auto) 0.3 % Neut # (Auto) 7.72 H (1.40-6.50) K/uL Lymph # (Auto) 1.33 (1.20-3.40) K/uL [place] # (Auto) 0.89 H (0.11-0.59) K/uL Eos # (Auto) 0.02 (0.00-0.50) K/uL Baso # (Auto) 0.03 (0.00-0.20) K/uL Immature Gran # (Auto) 0.13 (0.01-0.20) K/uL Sodium 158 H* (136-145) mmol/L Potassium 4.3 (3.5-5.1) mmol/L Chloride 117 H (98-107) mmol/L Carbon Dioxide 34 H (21-32) mmol/L Anion Gap 7 (3-11) BUN 28 H (6-23) mg/dl Creatinine 0.74 (0.6-1.2) mg/dl Est Cr Clr Drug Dosing 36.9 ml/min eGFR 81.74 BUN/Creatinine Ratio 37.8 H (10-20) Glucose 104 H (70-99(Fasting)) mg/dl Calcium 9.6 (8.6-10.3) mg/dl Total Bilirubin 0.4 (0.2-1.0) mg/dl AST 25 (13-39) U/L ALT 18 (7-52) U/L Alkaline Phosphatase 75 (34-104) U/L Total Protein 7.8 (6.0-8.3) gm/dl Albumin 3.5 (3.4-5.0) gm/dl Globulin 4.3 H (2.5-4.0) gm/dl Albumin/Globulin Ratio 0.8 L (0.9-2) Administered Medications Discontinued Medications Ceftriaxone Sodium (Rocephin) 2,000 mg in 50 mls @ 100 mls/hr IV NOW STA Stop: 09/21/24 15:01 Last Admin: 09/21/24 15:40 Dose: 100 mls/hr Documented By: MELISSA Sodium Chloride (Nss) 500 mls @ 999 mls/hr IV .Q31M ONE Stop: 09/21/24 15:11 Last Admin: 09/21/24 15:04 Dose: 999 mls/hr Documented By: MELISSA Imaging Data Radiologist's Impression: Chest X-Ray 09/21/24 13:38 Chest radiograph, one view History: Chest pain Comparison: 01/12/2023 Findings: Single AP view of the chest performed. Patchy nodular opacities seen in the left lung, likely infectious/inflammatory. No pneumothorax. The cardiomediastinal silhouette is within normal limits. Normal pulmonary vascularity. No evidence for lymphadenopathy. No visualized bony or soft tissue abnormality. Impression: Patchy nodular opacities seen in the left lung, likely infectious/inflammatory. Electronically signed by Joshua Pulliam 09-21-2024 2:28 PM Discharge Plan Visit Data Chief Complaint: Choking ED Provider: Aly Cabrera Discharge Problem: Choking episode, Acute hypernatremia, Aspiration into airway, Pneumonia Patient Disposition: Admitted As Inpatient Condition: Fair Forms Stand Alone Forms: [facility] Prescriptions Prescriptions: No Action acetaminophen [Tylenol] 325 mg Tablet 650 mg PO BID PRN (Reason: Fever Or Pain) ondansetron HCl 4 mg Tablet 4 mg PO Q8H PRN (Reason: Nausea) melatonin 5 mg Tablet 5 mg PO HS buspirone 5 mg tablet 10 mg PO BID divalproex 125 mg capsule, delayed rel sprinkle 500 mg PO QAM Rx Instructions: GIVE 4 CAPSULES (500MG) DAILY AT 8 AM divalproex 125 mg capsule, delayed rel sprinkle 750 mg PO QPM Rx Instructions: TAKE 6 CASPSULES (750MG) DAILY AT 4 PM ergocalciferol (vitamin D2) 200 mcg/mL (8,000 unit/mL) Drops 4,000 unit PO DAILY loperamide 2 mg capsule 4 mg PO DAILY PRN (Reason: LOOSE STOOLS) Referrals Referrals: Carly [facility] [Primary Care Provider] - Discharge Problem: Aspiration into airway Qualifiers: Encounter type: initial encounter Qualified Code(s): T17.908A - Unspecified foreign body in respiratory tract, part unspecified causing other injury, initial encounter Pneumonia Qualifiers: Pneumonia type: due to unspecified organism Laterality: left Lung location: l ower lobe of lung Qualified Code(s): J18.9 - Pneumonia, unspecified organism
[2024-09-21 14:13] LABS: Basophils # (auto) 0.03 K/uL (0.00-0.20); Basophils % (auto) 0.3 %; Eosinophils # (auto) 0.02 K/uL (0.00-0.50); Eosinophils % (auto) 0.2 %; Hematocrit (blood only) 43.5 % (37.0-47.0); Hemoglobin 13.4 g/dl (12.0-16.0); Immature Granulocytes # (auto) 0.13 K/uL (0.01-0.20); Immature Granulocytes % (auto) 1.3 %; Lymphocytes # (auto) 1.33 K/uL (1.20-3.40); Lymphocytes % (auto) 13.1 %; Mean Corpuscular Hemoglobin 29.8 pg (25.0-34.0); Mean Corpuscular Hgb Conc 30.8 g/dL (32.0-36.0); Mean Corpuscular Volume 96.9 fL (80.0-100.0); Mean Platelet Volume 10.8 fL (9.4-12.4); Monocytes # (auto) 0.89 K/uL (0.11-0.59); Monocytes % (auto) 8.8 %; Neutrophils # (auto) 7.72 K/uL (1.40-6.50); Neutrophils % (auto) 76.3 %; Platelet Count 193 K/uL (130-400); RDW Coefficient of Variation 15.1 % (11.5-14.5); RDW Standard Deviation 53.8 fL (36.4-46.3); Red Blood Count 4.49 M/uL (4.20-5.40); White Blood Count 10.12 K/ul (4.8-10.8)
--- NOTE | 2024-09-21 14:28 | XRay Report ---
Chest radiograph, one view History: Chest pain Comparison: 01/12/2023 Findings: Single AP view of the chest performed. Patchy nodular opacities seen in the left lung, likely infectious/inflammatory. No pneumothorax. The cardiomediastinal silhouette is within normal limits. Normal pulmonary vascularity. No evidence for lymphadenopathy. No visualized bony or soft tissue abnormality. Impression: Patchy nodular opacities seen in the left lung, likely infectious/inflammatory. Electronically signed by Joshua Pulliam 09-21-2024 2:28 PM
[2024-09-21 14:33] LABS: Albumin Globulin Ratio 0.8 (0.9-2); Albumin Level 3.5 gm/dl (3.4-5.0); BUN Creatinine Ratio 37.8 (10-20); Bilirubin,Total 0.4 mg/dl (0.2-1.0); Calcium 9.6 mg/dl (8.6-10.3); Creatinine Clr Calc Pharmacy 36.9 ml/min; Globulin 4.3 gm/dl (2.5-4.0); Potassium 4.3 mmol/L (3.5-5.1); Total Protein 7.8 gm/dl (6.0-8.3)
[2024-09-21] MEDS: SODIUM CHLORIDE 0.9% 500 ML IV ONE (15:04)
[2024-09-21] MEDS: cefTRIAXone SODIUM 2,000 MG/50 ML BAG IV STA (15:40)
--- NOTE | 2024-09-21 16:33 | History & Physical Report ---
Date of Service September 21, 2024 Assessment & Plan (1) Aspiration into airway: (2) Pneumonia: (3) Acute hypernatremia: (4) Dementia: (5) History of seizure: Plan This is an 79 y/o female with advanced dementia, hyperlipidemia, trigeminal neuralgia, and prior seizure who presented to the ED today from [facility] where she resides after a choking episode at lunch today. Referred to the ED for evaluation after required prolonged Heimlich maneuver and developed a cough po st-episode. Work-up in the ED concerning for early aspiraiton pneumonia and new hypernatremia with sodium of 158. #Choking episode #Presumed early aspiration pneumonia - Admit to med telemetry - IV Zosyn to cover for presumed aspiration - Speech therapy evaluation - NPO for now #Acute hypernatremia - likely related to poor oral intake - D5W at 80 cc/hr - Repeat BMP at 2300 today #History of seizure #History of trigeminal neuralgia - Change to IV valproic acid since NPO #Dementia with history of agitation - Continue shelbipar Discussed pt's care with son at the bedside. He reports that patient was previously on hospice but is not at present. Discussed goals of care. He requests treatment with measures such as IV antibiotics and IV fluids but would not prolonged aggressive measures so pt is DNR/DNI. Additionally, she would not want a feeding tube if that was recommended. Son questions if patient would again qualify for hospice with her current medical condition - will await speech therapy evaluation, case management evaluation. Pt seen and reviewed with collaborating physician, Dr. Zambrano. Plan of care discussed and as outlined above DVT prophylaxis: heparin zhanna Anthony PA-C History of Present Illness Chief Complaint: choking episode Primary Care Provider: [facility] This is an 79 y/o female with advanced dementia, hyperlipidemia, trigeminal neuralgia, and prior seizure who presented to the ED today from [facility] where she resides after a choking episode at lunch today. Pt is nonverbal so history was obtained from the chart and the son at the bedside. Pt apparently started choking while eating lunch today and staff performed the Heimlich maneuver. It reportedly took several minutes of the maneuver before staff were finally able to dislodge the piece of potato that was stuck. Subsequent to this episode she started with a cough that sound "junky" so pt was referred to the ED for evaluation. Pt's son denies prior history of aspiration or choking episodes. She does not follow a specific diet. She was previously on hospice at but had started eating better and gaining weight so her son reports that she no longer qualified. She does require assistance with eating at meals. Allergies Allergy/AdvReac Type Severity Reaction Status Date / Time No Known Allergies Allergy Verified 01/12/23 13:10 Home Medications Medication Instructions Recorded Confirmed Type acetaminophen 325 mg tablet 650 mg PO BID PRN Fever Or Pain 12/24/22 09/21/24 History (Tylenol) melatonin 5 mg tablet 5 mg PO HS 12/24/22 09/21/24 History ondansetron HCl 4 mg tablet 4 mg PO Q8H PRN Nausea 12/24/22 09/21/24 History buspirone 5 mg tablet 10 mg PO BID 09/21/24 09/21/24 History divalproex 125 mg capsule,delayed 500 mg PO QAM 09/21/24 09/21/24 History release sprinkle divalproex 125 mg capsule,delayed 750 mg PO QPM 09/21/24 09/21/24 History release sprinkle ergocalciferol (vitamin D2) 200 4,000 unit PO DAILY 09/21/24 09/21/24 History mcg/mL (8,000 unit/mL) oral drops loperamide 2 mg capsule 4 mg PO DAILY PRN LOOSE STOOLS 09/21/24 09/21/24 History Past Med/Surg History Problem List (Updated 09/21/24 @ 20:07 by Lacey Anthony PA-C) History of seizure Pneumonia (Acute) Aspiration into airway (Acute) Acute hypernatremia (Acute) Choking episode (Acute) Medical History (Updated 09/21/24 @ 20:07 by Lacey Anthony PA-C) Trigeminal neuralgia Hospice care patient Dyslipidemia Seizure Dementia Surgical History No pertinent past surgical history Family History Other Dyslipidemia Social History Smoking Status: Unknown if ever smoked Second Hand Exposure: No; Do You Dip or Chew Tobacco: No; Hx Alcohol Use: No Hx Substance Use: No Preferred Language: Sri Lankan Communication Ability: Impaired Mill Manager Required: No Beliefs That Will Affect Care: None Current Living Situation: Long Term Feels Safe at Home: Yes Assistive Devices: Hospital Bed and Wheelchair Review of Systems Review of Systems: Unobtainable due to advanced dementia Physical Exam Physical Exam: General: awake, alert, NAD, non-verbal HEENT: no scleral icterus, moist oral mucosa Heart: RRR Lungs: coarse BS at left base, otherwise diminished by clear (poor inspiratory effort) Abdomen: soft, NT, +BS Extremities: no pedal edema Skin: warm, dry Results & Data Results & Data Vital Signs (Past 12 Hours) Vital Signs Temp Pulse Pulse Resp BP BP Pulse Ox 09/21/24 15:11 99 H 16 143/100 H 95 09/21/24 14:59 90 09/21/24 13:38 93 09/21/24 13:38 36.6 C 94 H 16 152/90 H 93 O2 Del Method O2 Flow Rate 09/21/24 15:11 Room Air 09/21/24 14:59 09/21/24 13:38 Room Air 0 09/21/24 13:38 Room Air Laboratory Results Lab Results 09/21/24 Range/Units 13:50 WBC 10.12 (4.8-10.8) K/ul RBC 4.49 (4.20-5.40) M/uL Hgb 13.4 (12.0-16.0) g/dl Hct 43.5 (37.0-47.0) % MCV 96.9 (80.0-100.0) fL MCH 29.8 (25.0-34.0) pg MCHC 30.8 L (32.0-36.0) g/dL RDW Std Deviation 53.8 H (36.4-46.3) fL RDW Coeff of [place] 15.1 H (11.5-14.5) % Plt Count 193 (130-400) K/uL MPV 10.8 (9.4-12.4) fL Immature Gran % (Auto) 1.3 % Neut % (Auto) 76.3 % Lymph % (Auto) 13.1 % [place] % (Auto) 8.8 % Eos % (Auto) 0.2 % Baso % (Auto) 0.3 % Neut # (Auto) 7.72 H (1.40-6.50) K/uL Lymph # (Auto) 1.33 (1.20-3.40) K/uL [place] # (Auto) 0.89 H (0.11-0.59) K/uL Eos # (Auto) 0.02 (0.00-0.50) K/uL Baso # (Auto) 0.03 (0.00-0.20) K/uL Immature Gran # (Auto) 0.13 (0.01-0.20) K/uL Sodium 158 H* (136-145) mmol/L Potassium 4.3 (3.5-5.1) mmol/L Chloride 117 H (98-107) mmol/L Carbon Dioxide 34 H (21-32) mmol/L Anion Gap 7 (3-11) BUN 28 H (6-23) mg/dl Creatinine 0.74 (0.6-1.2) mg/dl Est Cr Clr Drug Dosing 36.9 ml/min eGFR 81.74 BUN/Creatinine Ratio 37.8 H (10-20) Glucose 104 H (70-99(Fasting)) mg/dl Calcium 9.6 (8.6-10.3) mg/dl Total Bilirubin 0.4 (0.2-1.0) mg/dl AST 25 (13-39) U/L ALT 18 (7-52) U/L Alkaline Phosphatase 75 (34-104) U/L Total Protein 7.8 (6.0-8.3) gm/dl Albumin 3.5 (3.4-5.0) gm/dl Globulin 4.3 H (2.5-4.0) gm/dl Albumin/Globulin Ratio 0.8 L (0.9-2) Diagnostic Findings Chest X-Ray 09/21/24 13:38 Chest radiograph, one view History: Chest pain Comparison: 01/12/2023 Findings: Single AP view of the chest performed. Patchy nodular opacities seen in the left lung, likely infectious/inflammatory. No pneumothorax. The cardiomediastinal silhouette is within normal limits. Normal pulmonary vascularity. No evidence for lymphadenopathy. No visualized bony or soft tissue abnormality. Impression: Patchy nodular opacities seen in the left lung, likely infectious/inflammatory. Electronically signed by Joshua Pulliam 09-21-2024 2:28 PM Medications Administered Discontinued Medications Ceftriaxone Sodium (Rocephin) 2,000 mg in 50 mls @ 100 mls/hr IV NOW STA Stop: 09/21/24 15:01 Last Admin: 09/21/24 15:40 Dose: 100 mls/hr Documented By: MELISSA Sodium Chloride (Nss) 500 mls @ 999 mls/hr IV .Q31M ONE Stop: 09/21/24 15:11 Last Admin: 09/21/24 15:04 Dose: 999 mls/hr Documented By: MELISSA Supervising Physician Co-Signing Physician Notes Attending Addendum: Case reviewed with the advanced practitioner. I have personally performed a history and physical examination on the patient. I have reviewed the advanced practitioner's documentation on the date of service referenced in note, and I agree with, and take responsibility for the plan of care. please refer to her notes for full details patient seen and examined, records reviewed by myself as well on exam, patient Seen resting in bed, comfortable, not in distress Nonverbal, not answering to my questions no other symptoms VS noted and reviewed Nonverbal,not in distress, Breathing with no effort nor accessory muscle use normal rate, regular rhythm, no murmurs clear breath sounds bilaterally non distended, soft, nontender no bipedal edema, erythema, warmth no New focalneuro deficits all labs, imaging noted and reviewed ASSESSMENT AND PLAN> Aspiration episode Possible aspiration pneumonia Advanced Dementia N.p.o., speech therapy eval, IV fluids IV Zosyn Hypernatremia Likely secondary to poor oral intake Sodium 158, D5 water ordered Repeat sodium at 11 PM today other diagnoses and plan of care as per advanced practitioner's notes Levi Zambrano MD (1) Aspiration into airway Encounter type: initial encounter Qualified Code(s): T17.908A - Unspecified foreign body in respiratory tract, part unspecified causing other injury, initial encounter (2) Pneumonia Laterality: left Lung location: lower lobe of lung Pneumonia type: due to unspecified organism Qualified Code(s): J18.9 - Pneumonia, unspecified organism (4) Dementia Dementia behavioral or psychological symptom: unspecified whether behavioral, psychotic, or mood disturbance or anxiety Dementia severity: unspecified severity Dementia type: unspecified type Qualified Code(s): F03.90 - Unspecified dementia, unspecified severity, without behavioral disturbance, psychotic disturbance, mood disturbance, and anxiety
[2024-09-21] MEDS: PIPERACILLIN/TAZOBACTAM 4.5 GM/100 ML BAG IV STA (18:48)
[2024-09-21] MEDS: DEXTROSE 5% 1,000 ML IV SCH (19:41)
[2024-09-21] MEDS: DEXTROSE 5% IV SCH (21:11)
[2024-09-21] MEDS: VALPROATE SOD IV SCH (21:11)
[2024-09-21] MEDS: busPIRone 5 MG TAB PO SCH (22:20)
[2024-09-21 22:22] LABS: BUN Creatinine Ratio 33.9 (10-20); Calcium 8.8 mg/dl (8.6-10.3); Creatinine Clr Calc Pharmacy 44.1 ml/min; Potassium 3.6 mmol/L (3.5-5.1)
[2024-09-21] MEDS: HEPARIN SOD 5,000 UNIT/0.5 ML VIAL SQ SCH (22:29)
[2024-09-22] MEDS: PIPERACILLIN/TAZOBACTAM 4.5 GM/100 ML BAG IV SCH (03:35)
[2024-09-22 06:44] LABS: Basophils # (auto) 0.02 K/uL (0.00-0.20); Basophils % (auto) 0.2 %; Eosinophils # (auto) 0.02 K/uL (0.00-0.50); Eosinophils % (auto) 0.2 %; Hematocrit (blood only) 38.3 % (37.0-47.0); Hemoglobin 12.3 g/dl (12.0-16.0); Immature Granulocytes # (auto) 0.04 K/uL (0.01-0.20); Immature Granulocytes % (auto) 0.5 %; Lymphocytes # (auto) 1.57 K/uL (1.20-3.40); Lymphocytes % (auto) 18.3 %; Mean Corpuscular Hemoglobin 30.6 pg (25.0-34.0); Mean Corpuscular Hgb Conc 32.1 g/dL (32.0-36.0); Mean Corpuscular Volume 95.3 fL (80.0-100.0); Mean Platelet Volume 9.7 fL (9.4-12.4); Monocytes # (auto) 1.01 K/uL (0.11-0.59); Monocytes % (auto) 11.8 %; Neutrophils # (auto) 5.91 K/uL (1.40-6.50); Platelet Count 205 K/uL (130-400); RDW Coefficient of Variation 14.8 % (11.5-14.5); RDW Standard Deviation 52.7 fL (36.4-46.3); Red Blood Count 4.02 M/uL (4.20-5.40); White Blood Count 8.57 K/ul (4.8-10.8)
[2024-09-22 07:18] LABS: BUN Creatinine Ratio 29.6 (10-20); Calcium 8.6 mg/dl (8.6-10.3); Creatinine Clr Calc Pharmacy 50.6 ml/min; Potassium 3.1 mmol/L (3.5-5.1)
[2024-09-22] MEDS: POTASSIUM CHLORIDE / WTR 10 MEQ/100 ML PLCT IV SCH (08:54)
--- NOTE | 2024-09-22 11:14 | Hospitalist Progress Note ---
<Statement entered by Eduardo Madrid DO - 09/22/24 15:39> I have seen and examined the patient and have discussed the case with the provider above. I have reviewed the advanced practitioner's documentation, and I agree with, and take responsibility for that plan of care. Patient evaluated bedside, eyes open but minimally responsive. Patient frail and weak no verbal response. In reviewing patient's history and bedside evaluation, suspect patient is having end-stage dementia and symptoms are associated with this. Based on this I believe she would meet the criteria for hospice care. Communication with [facility], she spoke with family. Reports that patient had been on hospice previously. Family would be willing to consider resuming hospice care. Would strongly encourage this plan with goals of comfort. Plan of care as outlined below Date of Service September 22, 2024 Assessment & Plan (1) Aspiration into airway: (2) Pneumonia: (3) Acute hypernatremia: (4) History of seizure: Plan This is an 79 y/o female with advanced dementia, hyperlipidemia, trigeminal neuralgia, and prior seizure who presented to the ED today from [facility] where she resides after a choking episode at lunch today. Referred to the ED for evaluation after required prolonged Heimlich maneuver and developed a cough post-episode. Work-up in the ED concerning for early aspiration pneumonia and new hypernatremia with sodium of 158. Choking episode Presumed early aspiration pneumonia Advanced dementia - Admit to med telemetry - IV Zosyn to cover for presumed aspiration - Speech therapy evaluation - recommends pured diet with thin liquids, make sure patient is fully upright before any p.o. intake, mouth care, aspiration and reflux precautions - Given aspiration and hypernatremia in advanced stage dementia, recommend consideration of hospice once again Acute hypernatremia - likely related to poor oral intake - Sodium improved from 158 -> 155 -> 150 this AM - Continue D5W at 80 cc/hr - Daily BMP Hypokalemia - K 3.1 this AM - replacing History of seizure History of trigeminal neuralgia - Resume PO Valproic acid with advanced diet Dementia with history of agitation - Continue Buspar Per discussion with son Mtathew (POA) - patient was previously on hospice but not at present. Goals of care - okay with IV abx and fluids for now but would not prolonged aggressive measures so pt is DNR/DNI. Additionally, she would not want a feeding tube if that was recommended. Interested in pursuing hospice again through [facility] and spoke with a nurse there this AM who said she would be reaching out to hospital. Goal would be for patient to return to [facility] on hospice at discharge. I spent a total of 45 minutes coordinating, documenting, and providing care for this patient excluding time spent in the performance of separately billed services. Admission and Anticipated Discharge Date Admission Date: September 21, 2024 Subjective Patient seen and examined in 253 bed 2 in follow-up for possible aspiration pneumonia and hypernatremia, sent in from [facility]. Patient nonverbal this morning, known advanced dementia. ROS unobtainable due to cognitive state. Per H&P, patient was reportedly previously on hospice at [facility], but started to eat better and gained weight, some son reports she no longer qualified. Does need assistance eating at meals but not on a specific diet. Review of Systems Review of Systems: Unobtainable due to advanced dementia Physical Exam Physical Exam: Gen: WD/WN, NAD, resting in bed, appears comfortably, alert, non-verbal and memory and cognitive deficits at baseline HEENT: Normocephalic, atraumatic Lung: Coarse breath sounds left base, otherwise diminished but clear (poor inspiratory effort) Heart: Regular rate, regular rhythm, no murmurs, rubs, or gallops Abdomen: Soft, NT, ND +BS x 4 Extremities: no edema Skin: Warm, no rash Results & Data Results & Data Vital Signs (Past 12 Hours) Vital Signs Temp Pulse Pulse Resp BP BP Pulse Ox 09/22/24 07:44 36.4 C L 68 16 150/72 H 94 09/22/24 07:06 62 09/22/24 03:27 36.4 C L 81 20 164/77 H 98 09/22/24 00:22 36.8 C 70 18 149/81 H 97 O2 Del Method 09/22/24 07:44 Room Air 09/22/24 07:06 09/22/24 03:27 Room Air 09/22/24 00:22 Room Air Laboratory Results Short CBC 09/21/24 09/22/24 Range/Units 13:50 06:21 WBC 10.12 8.57 (4.8-10.8) K/ul Hgb 13.4 12.3 (12.0-16.0) g/dl Hct 43.5 38.3 (37.0-47.0) % Plt Count 193 205 (130-400) K/uL BMP 09/21/24 09/21/24 09/22/24 13:50 21:47 00:35 Sodium 158 H* 154 H 155 H Potassium 4.3 3.6 Chloride 117 H 117 H Carbon Dioxide 34 H 31 BUN 28 H 21 Creatinine 0.74 0.62 Glucose 104 H 138 H Calcium 9.6 8.8 09/22/24 06:21 Sodium 150 H Potassium 3.1 L Chloride 112 H Carbon Dioxide 31 BUN 16 Creatinine 0.54 L Glucose 100 H Calcium 8.6 Liver Function 09/21/24 Range/Units 13:50 Total Bilirubin 0.4 (0.2-1.0) mg/dl AST 25 (13-39) U/L ALT 18 (7-52) U/L Alkaline Phosphatase 75 (34-104) U/L Albumin 3.5 (3.4-5.0) gm/dl Diagnostic Findings Chest X-Ray 09/21/24 13:38 Chest radiograph, one view History: Chest pain Comparison: 01/12/2023 Findings: Single AP view of the chest performed. Patchy nodular opacities seen in the left lung, likely infectious/inflammatory. No pneumothorax. The cardiomediastinal silhouette is within normal limits. Normal pulmonary vascularity. No evidence for lymphadenopathy. No visualized bony or soft tissue abnormality. Impression: Patchy nodular opacities seen in the left lung, likely infectious/inflammatory. Electronically signed by Joshua Pulliam 09-21-2024 2:28 PM (1) Aspiration into airway Encounter type: initial encounter Qualified Code(s): T17.908A - Unspecified foreign body in respiratory tract, part unspecified causing other injury, initial encounter (2) Pneumonia Laterality: left Lung location: lower lobe of lung Pneumonia type: due to unspecified organism Qualified Code(s): J18.9 - Pneumonia, unspecified organism
[2024-09-22] MEDS: DIVALPROEX SODIUM SPRINKLE/DEL-REL 125 MG CAP PO SCH (21:07)
[2024-09-22] MEDS: cefTRIAXone SODIUM 2,000 MG/50 ML BAG IV SCH (21:42)
[2024-09-22] MEDS: DOXYCYCLINE HYCLATE 100 MG in DEXTROSE 5% MINI-B 100 ML IV SCH (22:08)
[2024-09-23] MEDS: DIVALPROEX SODIUM SPRINKLE/DEL-REL 125 MG CAP PO SCH ×2 (10:02→19:43)
[2024-09-23] MEDS ORDERED: INFLUENZA VACC TS2024-25(65y+)/PF (IIV3) 0.5mL Syr IM ONE (10:30)
[2024-09-23] MEDS ORDERED: PNEUMOCOCCAL VACCINE (PCV20) 20-VAL CONJ-DIP CRM/PF 0.5 ML SYR IM ONE (10:30)
--- NOTE | 2024-09-23 11:57 | Hospitalist Progress Note ---
Date of Service September 23, 2024 Assessment & Plan (1) Aspiration into airway: (2) Pneumonia: (3) Acute hypernatremia: (4) History of seizure: Plan This is an 79 y/o female with advanced dementia, hyperlipidemia, trigeminal neuralgia, and prior seizure who presented to the ED today from [facility] where she resides after a choking episode at lunch today. Referred to the ED for evaluation after required prolonged Heimlich maneuver and developed a cough post-episode. Work-up in the ED concerning for early aspiration pneumonia and new hypernatremia with sodium of 158. Choking episode Presumed early aspiration pneumonia Advanced dementia admitted to [facility]/surg continue antibiotics IV Rocephin and Doxy - Speech therapy evaluation - recommends pured diet with thin liquids, make sure patient is fully upright before any p.o. intake, mouth care, aspiration and reflux precautions - Given aspiration and hypernatremia in advanced stage dementia, recommend consideration of hospice once again Acute hypernatremia - likely related to poor oral intake - Sodium improved from 158 -> 155 -> 150 on 09/23 -D5W discontinued due to 24hr automatic stop, will repeat BMP and re evaluate fluid needs Hypokalemia -3.1 on 09/22, will repeat BMP today History of seizure History of trigeminal neuralgia - Resume PO Valproic acid with advanced diet Dementia with history of agitation - Continue Buspar DVT ppx: SQ Heparin DNR/DNI PCP: Carly blackwell Dispo: admitted to [facility], not yet medical stable, per discussion with son and previous provider plan to likely d/c back to [facility] on hospice given advanced dementia I spent a total of 42 minutes reviewing notes, outpatient records, labs, medication, coordinating, documenting and providing care for this patient excluding time spent in the performance of separately billed services. Admission and Anticipated Discharge Date Admission Date: September 21, 2024 Subjective Pt seen in room 378-1. Student nurse came to bedside and said she ate almost all of her breakfast and that she had difficulty with straw. ROS unobtainable due to dementia. Review of Systems Review of Systems: Unobtainable due to cognitive status Physical Exam Physical Exam: Gen: thin, fraile elderly F, alert but not oriented and nonverbal HEENT: Normocephalic, atraumatic, conjunctivae moist, sclerae anicteric, mucous membranes dry. Lung: Clear to Auscultation bilaterally, no wheezes/rales/rhonchi Heart: Regular rate, regular rhythm, no murmurs, rubs, or gallops Abdomen: Soft, NT, ND +BS x 4 Extremities: No edema, hand contractures Skin: Warm, no rash, negative turgor. Results & Data Results & Data Vital Signs (Past 12 Hours) Vital Signs Temp Pulse Resp BP BP Pulse Ox O2 Del Method 09/23/24 11:37 36.7 C 84 17 102/70 93 Room Air 09/23/24 09:04 128/82 09/23/24 08:13 36.5 C 64 16 132/90 93 Room Air 09/23/24 02:16 36.6 C 77 15 116/66 96 Room Air 09/23/24 01:58 Room Air Medications Administered Current Inpatient Medications Buspirone HCl (Buspirone 5 Mg Tab) 10 mg PO BID [facility] Stop: 10/21/24 20:59 Last Admin: 09/23/24 10:02 Dose: 10 mg Divalproex Sodium (Divalproex Sodium Sprinkle/Del-Rel 125 Mg Cap) 500 mg PO QAM [facility] Stop: 10/23/24 08:59 Last Admin: 09/23/24 10:02 Dose: 500 mg Divalproex Sodium (Divalproex Sodium Sprinkle/Del-Rel 125 Mg Cap) 750 mg PO QPM [facility] Stop: 10/23/24 20:59 Heparin Sodium (Porcine) (Heparin Sod 5,000 Unit/0.5 Ml Vial) 5,000 units SQ Q8 [facility] Stop: 10/21/24 21:59 Last Admin: 09/23/24 05:37 Dose: 5,000 units Doxycycline Hyclate 100 mg/ (Dextrose) 100 mls @ 50 mls/hr IV Q12H [facility] Stop: 09/27/24 20:59 Last Admin: 09/23/24 10:28 Dose: 50 mls/hr Ceftriaxone Sodium (Rocephin) 2,000 mg in 50 mls @ 100 mls/hr IV Q24H [facility]; Protocol Stop: 09/27/24 20:59 Last Infusion: 09/22/24 22:12 Dose: Infused (1) Aspiration into airway Encounter type: initial encounter Qualified Code(s): T17.908A - Unspecified foreign body in respiratory tract, part unspecified causing other injury, initial encounter (2) Pneumonia Laterality: left Lung location: lower lobe of lung Pneumonia type: due to unspecified organism Qualified Code(s): J18.9 - Pneumonia, unspecified organism
[2024-09-23 13:06] LABS: BUN Creatinine Ratio 23.9 (10-20); Creatinine Clr Calc Pharmacy 59.4 ml/min; Potassium 3.6 mmol/L (3.5-5.1)
[2024-09-23] MEDS: ACETAMINOPHEN 500 MG TAB PO PRN (15:24)
[2024-09-23 21:29] VITALS: RESP 16
[2024-09-24 07:02] VITALS: BP 115/73; PULSE 83; TEMP 98.1; O2SAT 95
[2024-09-24] MEDS: ADVANCED PROBIOTIC 625 MG CAPSULE PO SCH (08:11)
[2024-09-24 08:38] LABS: BUN Creatinine Ratio 35.7 (10-20); Creatinine Clr Calc Pharmacy 65.1 ml/min; Potassium 3.4 mmol/L (3.5-5.1)
--- NOTE | 2024-09-24 10:44 | Discharge Summary ---
<Statement entered by Eduardo Madrid, - 09/24/24 11:41> I have seen and examined the patient and have discussed the case with the provider above. I have reviewed the advanced practitioner's documentation, and I agree with, and take responsibility for that plan of care. Patient still continues to be nonverbal, however she is awake. Appears comfortable and in no distress Agree with plans for discharge as outlined below and pursuing hospice care Discharge Summary Date of Service September 24, 2024 Principal Dx & Hospital Course #1 = Principal Diagnosis (1) Aspiration into airway: (2) Pneumonia: (3) Acute hypernatremia: (4) History of seizure: Plan This is an 79 y/o female with advanced dementia, hyperlipidemia, trigeminal neuralgia, and prior seizure who presented to the ED today from [facility] where she resides after a choking episode at lunch today. Referred to the ED for evaluation after required prolonged Heimlich maneuver and developed a cough post-episode. Work-up in the ED concerning for early aspiration pneumonia and new hypernatremia with sodium of 158. She was started on IV antibiotics as well as IV D5 water. Her sodium gradually improved. She also had hypokalemia which resolved with replacement. She was tolerating an oral diet with pured foods and assisted feedings. On day of discharge she was hemodynamically stable. Given her advanced dementia she is nonverbal, but otherwise appeared comfortable. She will transition to a course of oral antibiotics to complete treatment. She is being discharged back to [facility] on hospice. Notes For Next Care Provider Medication Changes From Visit Augmentin 875mg one tablet by mouth twice daily for additional 5 days, next dose due 09/24/24 in the evening. Lactobacillus one tablet by mouth once daily for additional 5 days to protect GI health while on antibiotics. Next dose is due on 09/25/24 in the a.m. Admission HPI Per Admitting Provider This is an 79 y/o female with advanced dementia, hyperlipidemia, trigeminal neuralgia, and prior seizure who presented to the ED today from [facility] where she resides after a choking episode at lunch today. Pt is nonverbal so history was obtained from the chart and the son at the bedside. Pt apparently started choking while eating lunch today and staff performed the Heimlich maneuver. It reportedly took several minutes of the maneuver before staff were finally able to dislodge the piece of potato that was stuck. Subsequent to this episode she started with a cough that sound "junky" so pt was referred to the ED for evaluation. Pt's son denies prior history of aspiration or choking episodes. She does not follow a specific diet. She was previously on hospice at but had started eating better and gaining weight so her son reports that she no longer qualified. She does require assistance with eating at meals. Admission Exam Per Admitting Provider Augmentin 875mg one tablet by mouth twice daily for additional 5 days, next dose due 09/24/24 in the evening. Lactobacillus one tablet by mouth once daily for additional 5 days to protect GI health while on antibiotics. Next dose is due on 09/25/24 in the a.m. Discharge Exam Gen: thin, fraile elderly F, alert but not oriented and nonverbal HEENT: Normocephalic, atraumatic, conjunctivae moist, sclerae anicteric, mucous membranes dry. Lung: Clear to Auscultation bilaterally, no wheezes/rales/rhonchi Heart: Regular rate, regular rhythm, no murmurs, rubs, or gallops Abdomen: Soft, NT, ND +BS x 4 Extremities: No edema, hand contractures Skin: Warm, no rash, negative turgor. Updated Medication List Medication Instructions Recorded Confirmed Type acetaminophen 325 mg tablet 650 mg PO BID PRN Fever Or Pain 12/24/22 09/21/24 History (Tylenol) melatonin 5 mg tablet 5 mg PO HS 12/24/22 09/21/24 History ondansetron HCl 4 mg tablet 4 mg PO Q8H PRN Nausea 12/24/22 09/21/24 History buspirone 5 mg tablet 10 mg PO BID 09/21/24 09/21/24 History divalproex 125 mg capsule,delayed 500 mg PO QAM 09/21/24 09/21/24 History release sprinkle divalproex 125 mg capsule,delayed 750 mg PO QPM 09/21/24 09/21/24 History release sprinkle ergocalciferol (vitamin D2) 200 4,000 unit PO DAILY 09/21/24 09/21/24 History mcg/mL (8,000 unit/mL) oral drops loperamide 2 mg capsule 4 mg PO DAILY PRN LOOSE STOOLS 01/11/25 01/11/25 History L.acidop,casei,lactis,rham-B.lact,caitlyn 1 cap PO DAILY #5 caps 09/24/24 Rx 625 mg (10 billion cell) capsule (Advanced Probiotic) amoxicillin 875 mg-potassium 1 tab PO Q12H #10 tabs 09/24/24 Rx clavulanate 125 mg tablet Hospital Stay Data Consultations 09/21/24 15:22 ED Decision to Admit Stat Pending Results Patient Have Any Pending Studies at Discharge: No Discharge Instructions Given to Patient (Per Discharging Provider) MEDICATION CHANGES: Augmentin 875mg one tablet by mouth twice daily for additional 5 days, next dose due 09/24/24 in the evening. Lactobacillus one tablet by mouth once daily for additional 5 days to protect GI health while on antibiotics. Next dose is due on 09/25/24 in the a.m. SUMMARY OF TEST RESULTS: You were admitted to hospital after a witnessed choking event that required the Heimlich maneuver and likely development of aspiration pneumonia. You were started on IV antibiotics. Your sodium level was elevated due to poor oral intake. This resolved after IV fluid administration. [facility] to complete a course of oral antibiotics. Your hospice agency will provide your comfort medications once you return to your facility. RECOMMENDATIONS FOR FOLLOW-UP: Please follow with your primary care provider as needed. Your hospice agency will be able to handle all of your care needs throughout this transition. OTHER INSTRUCTIONS: Seek medical attention if you have: * temperature above 101 * chest pain or trouble breathing * abdominal pain, nausea, vomiting * diarrhea, dark stools or bloody stools * any unanswered questions or concerns Call 911 if symptoms are severe. It has been a pleasure taking care of you. Please take care of yourself. If you have any questions regarding your recent hospitalization please contact [facility] and request Sejal Donisist @ [phone]. Total Time Total Time Spent Total Time Spent (In Minutes): 45 minutes
[2024-09-24] MEDS: POTASSIUM CHLORIDE CRTAB 20 MEQ TABCR PO STA (12:20)
== END 2024-09-24 14:10 | disposition hospice, inpatient (51) | DRG 178 ==
LOC: ED 13:30 → EDINP 17:14 → SUATTDRO 17:14 → 2W 19:36 → 3N 09-23 01:32